=== PATIENT | female | born 1965 | race Caucasian/White ===

== ENCOUNTER 2017-08-17 15:29 | Inpatient (IN) | payer MEDICARE, MEDICAID, SELFPAY | END 2017-08-19 09:50 | disposition home or self-care (01) | DRG 641 | PROVIDERS: Admitting Provider Emergency Medicine; Emergency Provider Emergency Medicine; Family Provider Internal Medicine; Visit Provider Internal Medicine Adolescent Medicine | DX: E86.0 Dehydration (principal); N17.9 Acute kidney failure, unspecified; I50.30 Unspecified diastolic (congestive) heart failure; E87.1 Hypo-osmolality and hyponatremia; E11.9 Type 2 diabetes mellitus without complications; I10 Essential (primary) hypertension; Z79.4 Long term (current) use of insulin; T50.2X5A Adverse effect of carbonic-anhydrase inhibitors, benzothiadiazides and other diuretics, initial encounter; Z91.81 History of falling; I25.10 Atherosclerotic heart disease of native coronary artery without angina pectoris; B19.20 Unspecified viral hepatitis C without hepatic coma | CPT/HCPCS: 36415; 70450; 71010; 72070; 72110; 72125; 73502; 73630; 80048; 80053; 82550; 82553; 82962; 84484; 85025; 93005; 99284; G0378 ==

== ENCOUNTER → 2017-09-11 09:09 | Outpatient (CLI) | payer MEDICARE, SELFPAY ==
[2017-09-11 09:32] LABS: Anion Gap 15.5 mEq/L (5-15); Blood Urea Nitrogen 19 mg/dL (7-18); Carbon Dioxide 24 mmol/L (21.0-32.0); Chloride 104 mmol/L (98-107); Creatinine,Serum 1.24 mg/dL (0.55-1.02); Estimated Glomerular Filt Rate 45 ml/min (>60); GFR (African American) 55 ML/MIN (>60); Glucose 159 mg/dL (74-106); Potassium 3.5 mmoL/L (3.5-5.1); Sodium 140 mmol/L (136-145)
== END ==
PROVIDERS: PCP Internal Medicine; Visit Provider Internal Medicine
DX: I11.9 Hypertensive heart disease without heart failure (principal); I25.10 Atherosclerotic heart disease of native coronary artery without angina pectoris
CPT/HCPCS: 36415; 80048

== ENCOUNTER → 2017-10-24 09:37 | Outpatient (CLI) | payer MEDICARE, SELFPAY ==
[2017-10-24 09:56] LABS: Blood Urea Nitrogen 12 mg/dL (7-18); Carbon Dioxide 30 mmol/L (21.0-32.0); Chloride 104 mmol/L (98-107); Estimated Glomerular Filt Rate 58 ml/min (>60); GFR (African American) 70 ML/MIN (>60); Glucose 152 mg/dL (74-106); Sodium 141 mmol/L (136-145)
== END ==
PROVIDERS: Visit Provider Internal Medicine Cardiovascular Disease
DX: I25.10 Atherosclerotic heart disease of native coronary artery without angina pectoris (principal); R00.0 Tachycardia, unspecified; I51.7 Cardiomegaly; I11.9 Hypertensive heart disease without heart failure; I10 Essential (primary) hypertension; R06.83 Snoring
CPT/HCPCS: 36415; 80048

== ENCOUNTER → 2017-12-04 20:05 | Outpatient (CLI) | payer MEDICARE, SELFPAY | PROVIDERS: PCP Internal Medicine; Visit Provider Internal Medicine Cardiovascular Disease | DX: R06.83 Snoring (principal); G47.9 Sleep disorder, unspecified; G47.00 Insomnia, unspecified | CPT/HCPCS: 95810 ==

== ENCOUNTER → 2018-06-01 09:54 | Outpatient (POV) | payer MEDICARE, SELFPAY ==
[2018-06-01 10:06] VITALS: BP 139/91; PULSE 79; RESP 18; O2SAT 98
--- NOTE | 2018-06-01 10:41 | HMH.PMCON ---
Assessment and Plan (1) Neuropathy Current visit: Yes Status: Chronic Category: Medical Code(s): G62.9 - Polyneuropathy, unspecified (2) Back pain Current visit: Yes Status: Chronic Qualifiers: Back pain location: low back pain Chronicity: chronic Back pain laterality: midline Sciatica presence: unspecified whether sciatica present Qualified Code(s): M54.5 - Low back pain; G89.29 - Other chronic pain Category: Medical Code(s): M54.9 - Dorsalgia, unspecified - Assessment and plan all Dx Assessment and Plan for all problems:: I gave the patient information on neuro stimulation. Patient is in review this and see if it is something that she is interested in pursuing. Patient has tried and failed other modalities of treatment. This note was dictated using voice recognition software and may contain errors or omissions HPI - Data of Consult Consult date: 06/01/18 Requesting Physician: Sonia Caceres APRN Primary Care Provider: Moose Martin Provider: Moose Chavarria - Consult Narrative Reason for consult: Generalized pain History of present illness: Ms. Kinsey is a 53 year old female presents today for consultation in regards to her pain. Patient has been diagnosed with fibromyalgia and diabetic neuropathy. Patient has overall pain. Patient seems frustrated be primary care physician has been changing her medications. Patient was taken off her Mobic along with her gabapentin. Patient states her PCP felt she was on too much medication. Patient does have a CPAP she wears at night. She is currently on Lyrica 50 mg 1 p.o. twice daily and she states that this does not helping. Patient has hep C. Patient and I discussed treatment options. She rates her pain a 10 out of 10 she states it is all over. Patient has had injections in the back with not much relief. Patient's tried and failed chiropractic therapy, physical therapy, fentanyl, Cymbalta, Lexapro, Lortab, Lyrica. Patient states all activity increases her pain while nothing decreases her pain. CC: Sonia Caceres APRN [facility] History I have reviewed the patient's past medical history: Yes Medical History: Reports:: Asthma, Coronary Artery Disease, Diabetes Mellitus Type 2, Gastroesophageal Reflux Disease(GERD), Hyperlipidemia, Hypertension Other Medical History: Reports: Arthritis, Thyroid Disease Laterality Cases: Left: Lumpectomy Other Surgeries: Yes: Cholecystectomy, Diagnostic Lap, Hernia Repair, Hysterectomy-Total, Tubal Ligation, Other - *Social History Smoking Status: Never smoker Alcohol Intake: former Alcohol Intake Frequency:: other Occupational Status: other Housing: house - Psychiatric History Expresses thoughts of harming self/others: None Suicide Plan Description: No Plan *Family Hx:: Heart Attack 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 Gastrointestinal: no incontinence, normal bowel movements reported Genitourinary: no incontinence Musculoskeletal: Back pain and neck pain, leg pain, arm pain Psychiatric: normal mood/ affect Neurological: [denies weakness in extremities], [denies balance issues] Meds Home Medications Medication Instructions Recorded Confirmed Type allopurinol 300 mg tablet 300 mg PO QDAY 09/11/17 History aspirin 81 mg tablet,delayed 81 mg PO QDAY 09/11/17 History release buspirone 15 mg tablet 30 mg PO BID tab 09/11/17 History cholecalciferol (vitamin D3) 2,000 2,000 unit PO QDAY cap 09/11/17 History unit capsule hydroxyzine pamoate 25 mg capsule 25 mg PO BID PRN cap 09/11/17 History insulin aspar prt-insulin aspart 40 unit SUB-Q QAM ml 09/11/17 Histo
--- NOTE | 2018-06-01 10:44 | P.CONS_ITS ---
Assessment and Plan (1) Neuropathy Current visit: Yes Status: Chronic Category: Medical Code(s): G62.9 - Polyneuropathy, unspecified (2) Back pain Current visit: Yes Status: Chronic Qualifiers: Back pain location: low back pain Chronicity: chronic Back pain laterality: midline Sciatica presence: unspecified whether sciatica present Qualified Code(s): M54.5 - Low back pain; G89.29 - Other chronic pain Category: Medical Code(s): M54.9 - Dorsalgia, unspecified - Assessment and plan all Dx Assessment and Plan for all problems:: I gave the patient information on neuro stimulation. Patient is in review this and see if it is something that she is interested in pursuing. Patient has tried and failed other modalities of treatment. This note was dictated using voice recognition software and may contain errors or omissions HPI - Data of Consult Consult date: 06/01/18 Requesting Physician: Sonia Caceres APRN Primary Care Provider: Moose Martin Provider: Moose Chavarria - Consult Narrative Reason for consult: Generalized pain History of present illness: Ms. Kinsey is a 53 year old female presents today for consultation in regards to her pain. Patient has been diagnosed with fibromyalgia and diabetic neuropathy. Patient has overall pain. Patient seems frustrated be primary care physician has been changing her medications. Patient was taken off her Mobic along with her gabapentin. Patient states her PCP felt she was on too much medication. Patient does have a CPAP she wears at night. She is currently on L yrica 50 mg 1 p.o. twice daily and she states that this does not helping. Patient has hep C. Patient and I discussed treatment options. She rates her pain a 10 out of 10 she states it is all over. Patient has had injections in the back with not much relief. Patient's tried and failed chiropractic therapy, physical therapy, fentanyl, Cymbalta, Lexapro, Lortab, Lyrica. Patient states all activity increases her pain while nothing decreases her pain. CC: Sonia Caceres APRN [facility] History I have reviewed the patient's past medical history: Yes Medical History: Reports:: Asthma, Coronary Artery Disease, Diabetes Mellitus Type 2, Gastroesophageal Reflux Disease(GERD), Hyperlipidemia, Hypertension Other Medical History: Reports: Arthritis, Thyroid Disease Laterality Cases: Left: Lumpectomy Other Surgeries: Yes: Cholecystectomy, Diagnostic Lap, Hernia Repair, Hysterectomy-Total, Tubal Ligation, Other - *Social History Smoking Status: Never smoker Alcohol Intake: former Alcohol Intake Frequency:: other Occupational Status: other Housing: house - Psychiatric History Expresses thoughts of harming self/others: None Suicide Plan Description: No Plan *Family Hx:: 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 Gastrointestinal: no incontinence, normal bowel movements reported Genitourinary: no incontinence Musculoskeletal: Back pain and neck pain, leg pain, arm pain Psychiatric: normal mood/ affect Neurological: [denies weakness in extremities], [denies balance issues] Meds Home Medications Medication Instructions
== END ==
PROVIDERS: Family Provider Internal Medicine; PCP Internal Medicine; Visit Provider Clinical Nurse Specialist Family Health
DX: G62.9 Polyneuropathy, unspecified (principal); M54.5 Low back pain; G89.29 Other chronic pain
CPT/HCPCS: 99202

== ENCOUNTER → 2018-06-11 10:35 | Outpatient (CLI) | payer MEDICARE, SELFPAY ==
[2018-06-11 13:06] LABS: Anion Gap 9.9 mEq/L (5-15); Blood Urea Nitrogen 13 mg/dL (7-18); Calcium 9.1 mg/dL (8.5-10.1); Carbon Dioxide 30 mmol/L (21.0-32.0); Chloride 100 mmol/L (98-107); Creatinine,Serum 1.03 mg/dL (0.55-1.02); Estimated Glomerular Filt Rate 56 ml/min (>60); GFR (African American) 67 ML/MIN (>60); Glucose 179 mg/dL (74-106); Potassium 3.9 mmoL/L (3.5-5.1); Sodium 136 mmol/L (136-145)
== END ==
PROVIDERS: PCP Internal Medicine; Visit Provider Internal Medicine Cardiovascular Disease
DX: E11.8 Type 2 diabetes mellitus with unspecified complications (principal); E66.01 Morbid (severe) obesity due to excess calories; E78.00 Pure hypercholesterolemia, unspecified; G47.33 Obstructive sleep apnea (adult) (pediatric); I11.9 Hypertensive heart disease without heart failure; I25.118 Atherosclerotic heart disease of native coronary artery with other forms of angina pectoris; R06.09 Other forms of dyspnea; Z79.4 Long term (current) use of insulin
CPT/HCPCS: 36415; 80048

== ENCOUNTER → 2018-06-30 08:56 | Outpatient (POV) | payer MEDICARE, SELFPAY ==
[2018-06-30 09:24] VITALS: BP 110/77; PULSE 69; RESP 18; O2SAT 98; BMI 42.4
--- NOTE | 2018-06-30 12:14 | HMH.PAINSOAP ---
[facility] Pain Management SOAP Note Subjective:: Patient is a pleasant 53-year-old white female who presents today for discussion in regards to her neurostimulator. She rates her pain a 9 out of 10 today. Patient and I had a long discussion in regards to the neurostimulator at her last appointment and she is interested in this. Patient states that her PCP felt she was on too much of her medication. She wears a CPAP at night. She is currently on Lyrica 50 mg 1 p.o. twice daily. She states this does not help. She does have hep C. Patient and I discussed changing her over to gabapentin 400 mg 1 3 times daily until the trial. Patient states all activity increases her pain while nothing decreases her pain. She states most of her pain is in her neck and arms along with her low back and legs. ROS General: no recent weight change, no fever, no sleep disturbances Respiratory: no cough, no shortness of air, no recurring pulmonary infections Cardiovascular/Peripheral Vascular: No chest pain, No palpitations, no edema, no shortness of breath. Gastrointestinal: no incontinence, normal bowel movements reported Genitourinary: no incontinence Musculoskeletal: Low back pain, leg pain, neck pain, arm pain Psychiatric: normal mood/ affect Neurological: [denies weakness in extremities], [denies balance issues] Objective:: Physical Exam General: Alert and oriented x3, no acute distress, pleasant and cooperative, [on room air] Lungs: Resps E/U, Symmetrical chest expansion, Eyes: PERRL Musculoskeletal: Flexion and extension of cervical and lumbar spine somewhat guarded secondary to pain, deep tendon reflexes normal, strength in upper and lower extremities [5/5], [abnormal gait noted] Neurological: speech clear, mononitrotoluene operator equal, no gross sensory deficits Assessment:: degenerative disc disease cervical spine with cervical radiculopathy and degenerative disc disease lumbar spine with lumbar radiculopathy Plan:: We will plan a neurostimulator trial for the patient. We will try to cover her cervical pain along with her arm pain and her low back pain and leg pain. We will also call in gabapentin 400 mg 1 p.o. 3 times daily for 1 month. I will follow-up with her after her trial. Patient's not on any anticoagulation therapy. This note was dictated using voice recognition software and may contain errors or omissions
== END ==
PROVIDERS: PCP Internal Medicine; Visit Provider Clinical Nurse Specialist Family Health
DX: M50.10 Cervical disc disorder with radiculopathy, unspecified cervical region (principal); M51.16 Intervertebral disc disorders with radiculopathy, lumbar region
CPT/HCPCS: 99213

== ENCOUNTER → 2018-07-09 10:42 | Outpatient (CLI) | payer MEDICARE, SELFPAY ==
[2018-07-09 12:50] LABS: Blood Urea Nitrogen 15 mg/dL (7-18); Calcium 9.4 mg/dL (8.5-10.1); Carbon Dioxide 30 mmol/L (21.0-32.0); Chloride 100 mmol/L (98-107); Creatinine,Serum 0.94 mg/dL (0.55-1.02); Estimated Glomerular Filt Rate 62 ml/min (>60); GFR (African American) 75 ML/MIN (>60); Glucose 164 mg/dL (74-106); Sodium 139 mmol/L (136-145)
== END ==
PROVIDERS: Urology; PCP Internal Medicine; Visit Provider Internal Medicine Cardiovascular Disease
DX: E11.8 Type 2 diabetes mellitus with unspecified complications (principal); I10 Essential (primary) hypertension; I25.118 Atherosclerotic heart disease of native coronary artery with other forms of angina pectoris; R06.09 Other forms of dyspnea; R60.1 Generalized edema
CPT/HCPCS: 36415; 80048

== ENCOUNTER → 2018-07-17 13:51 | Outpatient (POV) | payer MEDICARE, SELFPAY ==
[2018-07-17 14:02] VITALS: BP 152/104; PULSE 84; RESP 18; O2SAT 96; BMI 40.7
--- NOTE | 2018-07-17 14:07 | P.CONS_ITS ---
[facility] Pain Management SOAP Note Subjective:: This patient is a pleasant 53-year-old white female who we are treating for neck pain with cervical radiculopathy symptoms as well as low back pain with lumbar radiculopathy symptoms. She did very well with her spinal cord stimulator trial. She was 70-80% better. She was much more functional. Her thoracic lead was off midline and she got good stimulation on the left side and not the right side. Given the difficulty in placing her leads in the cervical region and lower thoracic region I believe she would be a candidate for surgical paddle lead placement. Since this was a successful trial. We will send her to Dr. Ochoa for permanent surgical paddle lead placement. Objective:: Alert and oriented x3 no acute distress. Patient does have an antalgic gait. Motor strength of the upper and lower extremities are 5/5. There is no gross sensory deficit. Lead was pulled intact with no signs of infection or redness. Assessment:: Degenerative disc disease of the cervical spine with cervical radiculopathy symptoms. Degenerative disease of lumbar spine with lumbar radiculopathy symptoms. Plan:: We will refer to Dr. Ochoa for surgical paddle lead placement. Cervical lead needs to be at the C4-C5 level. Lower thoracic leave needs to be at the T7-T8 level in the midline. We will follow-up with her after her surgical permanent placement of spinal cord stimulator system.
--- NOTE | 2018-07-22 11:29 | PC.PHONENOTE ---
CALLED IN RX FOR TRAMADOL 50MG TID #63 PER PROVIDER ORDER
--- NOTE | 2018-09-22 08:52 | PC.NURSE ---
REFILL FOR GABAPENTIN 400MG TID CALLED INTO [facility] IN [place] PER PROVIDER ORDER. PHARMACY # IS [phone]
== END ==
PROVIDERS: PCP Internal Medicine; Visit Provider Anesthesiology
DX: M50.10 Cervical disc disorder with radiculopathy, unspecified cervical region (principal); M51.16 Intervertebral disc disorders with radiculopathy, lumbar region
CPT/HCPCS: 99212

== ENCOUNTER → 2019-02-02 10:04 | Outpatient (POV) | payer MEDICARE, SELFPAY ==
[2019-02-02 10:34] VITALS: BP 126/81; PULSE 74; RESP 18; O2SAT 98; BMI 39.3
--- NOTE | 2019-02-02 10:42 | HMH.PAINSOAP ---
[facility] Pain Management SOAP Note Subjective:: Patient is a pleasant 53-year-old white female who we are treating for low back pain and leg pain. She is recently had a cervical fusion. She states that it is helped somewhat however she still rating her pain a 10 out of 10. Patient had a successful stimulator trial. Patient and Dr. Leal have been discussing potential fusion of the lower lumbar spine or placement of the stimulator. ROS General: no recent weight change, no fever, no sleep disturbances Respiratory: no cough, no shortness of air, no recurring pulmonary infections Cardiovascular/Peripheral Vascular: No chest pain, No palpitations, no edema, no shortness of breath. Gastrointestinal: no incontinence, normal bowel movements reported Genitourinary: no incontinence Musculoskeletal: Back pain, leg pain Psychiatric: normal mood/ affect Neurological: [denies weakness in extremities], [denies balance issues] Objective:: Physical Exam General: Alert and oriented x3, no acute distress, pleasant and cooperative, [on room air] Lungs: Resps E/U, Symmetrical chest expansion, Eyes: PERRL Musculoskeletal: Flexion and extension of lumbar spine somewhat guarded secondary to pain, deep tendon reflexes normal, strength in upper and lower extremities [5/5], [abnormal gait noted] Neurological: speech clear, 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 Leal. Patient and I discussed potentially another stimulator trial. I do spoke with Dr. Vincent about this he states that we can move forward with this after her appointment Dr. Leal. We will increase her gabapentin to 600 mg 1 p.o. 3 times daily and I will see her back in 1 month. She is been instructed to call the office if she has any issues prior to her next appointment. Dr. Vicnent has reviewed this note and agrees with this plan of care. This note was dictated using voice recognition software and may contain errors or omissions
--- NOTE | 2019-02-02 10:45 | P.CONS_ITS ---
[facility] Pain Management SOAP Note Subjective:: Patient is a pleasant 53-year-old white female who we are treating for low back pain and leg pain. She is recently had a cervical fusion. She states that it is helped somewhat however she still rating her pain a 10 out of 10. Patient had a successful stimulator trial. Patient and Dr. Leal have been discussing potential fusion of the lower lumbar spine or placement of the stimulator. ROS General: no recent weight change, no fever, no sleep disturbances Respiratory: no cough, no shortness of air, no recurring pulmonary infections Cardiovascular/Peripheral Vascular: No chest pain, No palpitations, no edema, no shortness of breath. Gastrointestinal: no incontinence, normal bowel movements reported Genitourinary: no incontinence Musculoskeletal: Back pain, leg pain Psychiatric: normal mood/ affect Neurological: [denies weakness in extremities], [denies balance issues] Objective:: Physical Exam General: Alert and oriented x3, no acute distress, pleasant and cooperative, [on room air] Lungs: Resps E/U, Symmetrical chest expansion, Eyes: PERRL Musculoskeletal: Flexion and extension of lumbar spine somewhat guarded secondary to pain, deep tendon reflexes normal, strength in upper and lower extremities [5/5], [abnormal gait noted] Neurological: 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 Leal. Patient and I discussed potentially another stimulator trial. I do spoke with Dr. Vincent about this he states that we can move forward with this after her appointment Dr. Leal. We will increase her gabapentin to 600 mg 1 p.o. 3 times daily and I will see her back in 1 month. She is been instructed to call the office if she has any issues prior to her next appointment. Dr. Vincent has reviewed this note and agrees with this plan of care. This note was dictated using voice recognition software and may contain errors or omissions
--- NOTE | 2019-03-03 15:33 | PC.PHONENOTE ---
called in 2 refill's for Gabapentin 600mg TID with to [facility] per providers order.
--- NOTE | 2019-05-26 08:04 | PC.NURSE ---
05/25/19 LATE ENTRY: GABAPENTIN 600MG TID WITH 2 REFILLS CALLED INTO [facility] PER PROVIDER ORDER
--- NOTE | 2019-06-01 09:28 | PC.NURSE ---
2 REFILLS FOR NEXIUM AND NAPROXEN CALLED INTO [facility] IN [place] PER PROVIDER ORDER
== END ==
PROVIDERS: PCP Internal Medicine; Visit Provider Clinical Nurse Specialist Family Health
DX: M51.16 Intervertebral disc disorders with radiculopathy, lumbar region (principal)
CPT/HCPCS: 99212

== ENCOUNTER → 2019-08-23 10:28 | Outpatient (POV) | payer MEDICARE, SELFPAY ==
[2019-08-23 11:02] VITALS: BP 124/68; PULSE 75; RESP 18; O2SAT 98; BMI 40.5
--- NOTE | 2019-08-23 11:35 | P.CONS_ITS ---
[facility] Pain Management SOAP Note Subjective:: Patient is a pleasant 54-year-old white female who we are treating for low back pain and leg pain. She is recently had a cervical fusion. Patient had a new Vectra stimulator put in by Dr. Leal. We will get her the one 800-number for this company. Patient still having difficulty finding someone to reprogram her. Patient rates her pain a 6 out of 10 today. She is also on gabapentin 600 mg 1 p.o. 3 times daily along with Nexium and naproxen we will refill her today. Patient's main complaint today is left knee pain. Patient has difficulty with her knee patient and I discussed genicular blocks she is interested in pursuing this. ROS General: no recent weight change, no fever, no sleep disturbances Respiratory: no cough, no shortness of air, no recurring pulmonary infections Cardiovascular/Peripheral Vascular: No chest pain, No palpitations, no edema, no shortness of breath. Gastrointestinal: no new onset incontinence, normal bowel movements reported Genitourinary: no new onset incontinence Musculoskeletal: Left knee pain Psychiatric: normal mood/ affect Neurological: [denies new onset weakness in extremities], [denies new onset balance issues] Objective:: Physical Exam General: Alert and oriented x3, no acute distress, pleasant and cooperative, [on room air] Lungs: Resps E/U, Symmetrical chest expansion, Eyes: PERRL Musculoskeletal: Flexion and extension of cervical and lumbar spine somewhat guarded secondary to pain, deep tendon reflexes normal, strength in upper and lower extremities [5/5], decreased range of motion left knee secondary to pain [abnormal gait noted] Neurological: speech clear, 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 We will also refill her gabapentin, naproxen, Nexium. I will follow-up with her after her appointment reassess her symptoms at that time she is been instructed to call the office if she has any issues prior to her next appointment. Dr. Vincent has reviewed this note and agrees with this plan of care. This note was dictated using voice recognition software and may contain errors or omissions [facility] History I have reviewed the patient's past medical history: Yes Medical History: Reports:: Asthma, Coronary Artery Disease, Diabetes Mellitus Type 2, Gastroesophageal Reflux Disease(GERD), Hyperlipidemia, Hypertension Denies:: Cancer, Diabetes Mellitus Type 1, Internal Pacemaker, MRSA, Seizures *Have you ever received a pneumonia vaccine?: Yes *Have you received a flu vaccine this season?: Yes Other Medical History: Reports: Arthritis, Thyroid Disease. Denies: Blood Transfusion Reaction Laterality Cases: Left: Arthroscopy Shoulder, Lumpectomy Other Surgeries: Yes: No Previous Surgery, Cholecystectomy, Diagnostic Lap, Hernia Repair, Hysterectomy-Total, Tubal Ligation, Other. 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
== END ==
PROVIDERS: PCP Internal Medicine; Visit Provider Clinical Nurse Specialist Family Health
DX: M25.562 Pain in left knee (principal); M96.1 Postlaminectomy syndrome, not elsewhere classified; M51.16 Intervertebral disc disorders with radiculopathy, lumbar region
CPT/HCPCS: 99212

== ENCOUNTER → 2019-10-25 10:17 | Outpatient (POV) | payer MEDICARE, SELFPAY ==
[2019-10-25 10:38] VITALS: BP 118/68; PULSE 84; RESP 18; O2SAT 98; BMI 39.4
--- NOTE | 2019-10-25 10:52 | HMH.PAINSOAP ---
[facility] Pain Management SOAP Note Subjective:: She is a pleasant 54-year-old white female who returns for chronic left knee pain. She status post a left knee genicular block. She has no pain in her knee anymore been doing extremely well her biggest complaint is her left SI joint. She has extreme point tenderness over this area radiating into her hip and down her leg but not past her knee. Patient and I discussed an SI joint injection we will move forward with this. Patient is continuing anti-inflammatories and stretching. ROS General: no recent weight change, no fever, no sleep disturbances Respiratory: no cough, no shortness of air, no recurring pulmonary infections Cardiovascular/Peripheral Vascular: No chest pain, No palpitations, no edema, no shortness of breath. Gastrointestinal: no new onset incontinence, normal bowel movements reported Genitourinary: no new onset incontinence Musculoskeletal: Left SI joint pain Psychiatric: normal mood/ affect, Neurological: [denies new onset weakness in extremities], [denies new onset balance issues] Objective:: Physical Exam General: Alert and oriented x3, no acute distress, pleasant and cooperative, [on room air] Lungs: Resps E/U, Symmetrical chest expansion, Eyes: PERRL Musculoskeletal: Flexion and extension of lumbar spine somewhat guarded secondary to pain, deep tendon reflexes normal, strength in upper and lower extremities [5/5], [abnormal gait noted] patient has a positive Titus test Trung's test and SI joint compression test on the left side Neurological: speech clear, support architect equal, no gross sensory deficits Assessment:: Sacroiliitis Plan:: We will schedule the patient for a left SI joint injection I do believe this would benefit her given the efficacy of other injection she has had. Patient's been instructed to call the office if she has any issues prior to her next appointment. Dr. Vincent has reviewed this note and agrees with this plan of care. This note was dictated using voice recognition software and may contain errors or omissions [facility] History I have reviewed the patient's past medical history: Yes Medical History: Reports:: Asthma, Coronary Artery Disease, Diabetes Mellitus Type 2, Gastroesophageal Reflux Disease(GERD), Hyperlipidemia, Hypertension Denies:: Cancer, Diabetes Mellitus Type 1, Internal Pacemaker, MRSA, Seizures *Have you ever received a pneumonia vaccine?: Yes *Have you received a flu vaccine this season?: Yes Other Medical History: Reports: Arthritis, Thyroid Disease. Denies: Blood Transfusion Reaction Laterality Cases: Left: Arthroscopy Shoulder, Lumpectomy Other Surgeries: Yes: No Previous Surgery, Cholecystectomy, Diagnostic Lap, Hernia Repair, Hysterectomy-Total, Tubal Ligation, Other. 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
== END ==
PROVIDERS: PCP Internal Medicine; Visit Provider Clinical Nurse Specialist Family Health
DX: M46.1 Sacroiliitis, not elsewhere classified (principal)
CPT/HCPCS: 99212

== ENCOUNTER → 2020-01-17 10:54 | Outpatient (POV) | payer MEDICARE, SELFPAY ==
--- NOTE | 2020-01-17 10:59 | HMH.VVPMSO ---
[facility] Virtual Visit SOAP Consent for virtual visit:: With the recent concerns about the COVID-19, we are trying to minimize exposure to you by shifting to telehealth appointments whenever possible. It restricts me from seeing you in person, but the trade off is protecting you during this pandemic. Can you see and hear me okay, and do you consent to this option? If not, I would be happy to see if we can reschedule your appointment in the future, when feasible. Has patient consented to this virtual visit?: Yes Subjective:: Patient is a pleasant 54-year-old white female who presents today for follow-up. Patient had a left knee genicular block and got 90% relief for 2 months. She would like to move forward with an ablation of this area. She has had pain in her knee for several years. Patient is tried and failed injective therapy along with physical therapy along with anti-inflammatories. Patient rates her pain today a 7 out of 10. She is also on gabapentin 600 mg 1 p.o. 3 times daily. ROS General: no recent weight change, no fever, no sleep disturbances Respiratory: no cough, no shortness of air, no recurring pulmonary infections Cardiovascular/Peripheral Vascular: No chest pain, No palpitations, no edema, no shortness of breath. Gastrointestinal: no new onset incontinence, normal bowel movements reported Genitourinary: no new onset incontinence Musculoskeletal: Left knee pain Psychiatric: normal mood/ affect Neurological: [denies new onset weakness in extremities], [denies new onset balance issues] Objective:: Physical exam: Constitutional: Healthy appearing, well-developed, alert, in no acute distress Psychiatric: Judgment and insight intact, Alert and oriented x4 Mood and affect: Mood normal, affect appropriate Head and face: Inspection: Normocephalic atraumatic, extraocular movement intact Respiratory: Breathing nonlabored, nondyspneic Cardiovascular: No cyanosis, clubbing, or edema observed Skin: Head and neck: Skin with no lesions or rash observed Gait: Able to walk without assistive device: Able to heel and toe walk Neurologic: Sensation grossly intact per patient Musculoskeletal: Decreased range of motion left knee Assessment:: Left knee osteoarthritis and left knee pain Plan:: We will schedule the patient for a left genicular RFA. I will follow-up with her after this reassess her symptoms at that time she has been instructed to call the office if she has any issues prior to her next appointment. Dr. Vincent has reviewed this note and agrees with this plan of care. This note was dictated using voice recognition software and may contain errors or omissions Time In:: 10:55 Time Out:: 11:05 [facility] History I have reviewed the patient's past medical history: Yes Medical History: Reports:: Asthma, Coronary Artery Disease, Diabetes Mellitus Type 2, Gastroesophageal Reflux Disease(GERD), Hyperlipidemia, Hypertension Denies:: Cancer, Diabetes Mellitus Type 1, Internal Pacemaker, MRSA, Seizures *Have you ever received a pneumonia vaccine?: No *Have you received a flu vaccine this season?: No Other Medical History: Reports: Arthritis, Thyroid Disease. Denies: Blood Transfusion Reaction Laterality Cases: Left: Arthroscopy Shoulder, Lumpectomy Other Surgeries: Yes: No Previous Surgery, Cholecystectomy, Diagnostic Lap, Hernia Repair, Hysterectomy-Total, Tubal Ligation, Other. No: Pacemaker Amputation: No Fractures: No - *Social History Smoking Status: Never smoker Alcohol Intake: never Alcohol Intake Frequency:: other Substance Use Type: denies use *Occupational Status:: disabled Housing: house *Travel in the last 8 weeks: None Family Hx:: Heart Attack [employer] history: Tubal Ligation, Spontaneous
== END ==
PROVIDERS: Visit Provider Clinical Nurse Specialist Family Health
DX: M17.12 Unilateral primary osteoarthritis, left knee (principal)
CPT/HCPCS: 99212

== ENCOUNTER → 2020-02-08 08:50 | Outpatient (POV) | payer MEDICARE, SELFPAY ==
[2020-02-08 09:07] VITALS: BP 107/79; PULSE 79; RESP 18; TEMP 36.8; O2SAT 99; BMI 40.7
--- NOTE | 2020-02-08 09:32 | P.CONS_ITS ---
[facility] Pain Management SOAP Note Subjective:: Patient is a pleasant 54-year-old white female who presents today for follow-up. Patient states that on Friday she had a migraine and was throwing up. Since then she has had extreme pain throughout her body. She denies any kind of flulike symptoms. She states her right shoulder hurts she is having muscle spasms her knees hurt her joints hurt. She rates her pain a 10 out of 10 today. Patient wanted to discuss oral medication. I do believe around the steroids might benefit her. She has had these before with good results. She is recently gotten lab work done for her primary care physician. ROS General: no recent weight change, no fever, no sleep disturbances Respiratory: no cough, no shortness of air, no recurring pulmonary infections Cardiovascular/Peripheral Vascular: No chest pain, No palpitations, no edema, no shortness of breath. Gastrointestinal: no new onset incontinence, normal bowel movements reported Genitourinary: no new onset incontinence Musculoskeletal: Back pain, leg pain Psychiatric: normal mood/ affect, Neurological: [denies new onset weakness in extremities], [denies new onset balance issues] Objective:: Physical Exam General: Alert and oriented x3, no acute distress, pleasant and cooperative, [on room air] Lungs: Resps E/U, Symmetrical chest expansion, Eyes: PERRL Musculoskeletal: Flexion and extension of lumbar spine somewhat guarded secondary to pain, deep tendon reflexes normal, strength in upper and lower extremities [5/5], [abnormal gait noted] Neurological: speech clear, meter/relay technician equal, no gross sensory deficits Assessment:: Degenerative disc disease lumbar spine lumbar radiculopathy, left knee pain and osteoarthritis Plan:: We will give her prednisone 20 mg 1 p.o. twice daily for 5 days. She does have an RFA scheduled on Friday for her knee. We will follow-up with her after this reassess her symptoms at that time she has been instructed to call the office if she has any issues prior to her next appointment. Dr. Vincent has reviewed this no te and agrees with this plan of care. This note was dictated using voice recognition software and may contain errors or omissions [facility] History I have reviewed the patient's past medical history: Yes Medical History: Reports:: Asthma, Coronary Artery Disease, Diabetes Mellitus Type 2, Gastroesophageal Reflux Disease(GERD), Hyperlipidemia, Hypertension Denies:: Cancer, Diabetes Mellitus Type 1, Internal Pacemaker, MRSA, Seizures *Have you ever received a pneumonia vaccine?: Yes *Have you received a flu vaccine this season?: Yes Other Medical History: Reports: Arthritis, Thyroid Disease. Denies: Blood Transfusion Reaction Laterality Cases: Left: Arthroscopy Shoulder, Lumpectomy Other Surgeries: Yes: No Previous Surgery, Cholecystectomy, Diagnostic Lap, Hernia Repair, Hysterectomy-Total, Tubal Ligation, Other. No: Pacemaker Amputation: No Fractures: No - *Social History Smoking Status: Never smoker Alcohol Intake: never Alcohol Intake Frequency:: other Substance Use Type: denies use *Occupational Status:: other Housing: house *Travel in the last 8 weeks: None Family Hx:: Heart Attack [employer]M [employer]ER history: Tubal Ligation, Spontaneous
== END ==
PROVIDERS: PCP Internal Medicine; Visit Provider Clinical Nurse Specialist Family Health
DX: M51.16 Intervertebral disc disorders with radiculopathy, lumbar region (principal); M17.32 Unilateral post-traumatic osteoarthritis, left knee
CPT/HCPCS: 99212

== ENCOUNTER 2020-02-11 09:05 | Day surgery (SDC) | payer MEDICARE, SELFPAY ==
[2020-02-11 09:34] VITALS: BP 160/75; PULSE 64; RESP 18; TEMP 36.6; O2SAT 96; BMI 40.7
[2020-02-11 09:57] VITALS: BP 142/78; PULSE 82; RESP 18; O2SAT 98
[2020-02-11 09:58] VITALS: BP 135/85; PULSE 88; RESP 18; TEMP 36.8; O2SAT 99
--- NOTE | 2020-02-11 10:14 | P.PCN_ITS ---
- Procedure Date: 02/11/20 Time: 10:14 Anesthesiologist:: Virgilio Vincent MD Complications:: None Pre-procedure Diagnosis:: Left knee degenerative osteoarthritis Post-procedure Diagnosis:: Same Indications for Procedure:: Patient is a pleasant 54-year-old white female who we have been treating for low back pain with lumbar radicular symptoms as well as left knee pain with degenerative osteoarthritis. She did very well from previous genicular nerve blocks with 80 to 90% relief in her pain symptoms. These however were not but long-lasting. She presents for left genicular superior medial, superior lateral and inferior medial nerve RFA today. I have also talked her about her Nuve[employer] cord stimulator. She does have a paddle lead in place. This was placed by Dr. roberson. She is having problems with equipment it is not recharging. Because the company has final chapter 11 has provided no support we will have to change his stimulator system out to a [employer] system. We will need to put percutaneous leads in and a new generator. I will have the equal opportunity representative contact her. We will also get thoracic AP and lateral x-rays to ascertain paddle lead. Procedure Details:: Left knee genicular RFA Informed consent was obtained and the risk and benefits of the procedure was explained to the patient. The patient was taken to the procedure room. The left knee was prepped using ChloraPrep. I placed 22-gauge needles into the area of the left superior medial genicular nerve, left superior lateral genicular nerve and left inferior medial genicular nerve. Needle placement was confirmed in AP and lateral views we underwent sensory stimulation. There is good sensory stimulation at 1 V. We then underwent motor stimulation. There is no motor st imulation at 3 V. We then injected bupivacaine 0.25% 3 mL's and Depo-Medrol 25 mg into each area of the left superior medial genicular nerve, left superior lateral genicular nerve and left inferior medial genicular nerve. After anesthetizing all 3 nerves we burned each nerve for 4 minutes at 80 ?C, left superior medial genicular nerve, left superior lateral genicular nerve and left inferior medial genicular nerve. Patient tolerated the procedure well with no complications. Plan and Disposition:: We will follow-up with her in 2 weeks. Will reevaluate symptoms at that time. We will get thoracic spine x-rays to ascertain her stimulator paddle lead placement. We will have her talk to the [employer] equal opportunity representative about replacement of her spinal cord stimulator system.
--- NOTE | 2020-02-11 10:16 | XR_ITS ---
PROCEDURE: XR THORACIC SPINE 2V CLINICAL INDICATION: verfiy stimulator lead placement COMPARISON: TSP2 THORACIC SPINE AP LAT-2VIEW from 08/17/2017 FINDINGS: The epidural stimulator is present. The leads are at the T8 level entering the thecal sac at the T6-T7 region. There is multilevel thoracic spondylosis with prominent ventral osteophytes with degenerative disc disease. Mild wedging noted involving T6 and T7 which appears chronic. No acute fracture or dislocation. No lytic or blastic change. IMPRESSION: Epidural leads are at the T8 level with thoracic spondylosis Dictated by: Romario Jarvis MD 02/11/2020 12:31 Electronically signed by Romario Jarvis MD in [place] 02/11/2020 12:31
--- NOTE | 2020-02-11 10:25 | XR_ITS ---
PROCEDURE: XR CERVICAL SPINE 2V CLINICAL INDICATION: check stimulator leads COMPARISON: CSWO CT CERVICAL SPINE from 08/17/2017 XR THORACIC SPINE 2V from 02/11/2020 FINDINGS: There has been prior anterior cervical disc fusion at C4-C5 C6 and C7.. There is mild anterolisthesis of C4 C5 on C6 of 4 mm. Disc spacers are present at C4-5 C5-C6. On the lateral view there is questionable irregularity of the inferior screws at C7. Cannot exclude the possibility of a partial fracture. CT may provide further evaluation. Facet arthritic changes are present at C3-C4 and C4-C5 and C6-C7. IMPRESSION: Prior anterior cervical disc fusion with questionable fracture of 1 of the inferior screws at C7 as seen on the lateral view. CT may provide further evaluation. Dictated by: Romario Jarvis MD 02/11/2020 12:25 Electronically signed by Romario Jarvis MD in [place] 02/11/2020 12:25
[2020-02-11 10:26] VITALS: BP 160/93; PULSE 65; RESP 18; O2SAT 96
--- NOTE | 2020-02-11 15:23 | PC.NURSE ---
GABAPENTIN 800MG TID WITH 2 REFILLS CALLED INTO [facility] PER PROVIDER ORDER
== END 2020-02-11 10:27 | disposition home or self-care (01) ==
LOC: SC.PAINP 09:07
PROVIDERS: PCP Internal Medicine; Visit Provider Anesthesiology
DX: M17.12 Unilateral primary osteoarthritis, left knee (principal); M51.16 Intervertebral disc disorders with radiculopathy, lumbar region; I10 Essential (primary) hypertension; J45.909 Unspecified asthma, uncomplicated; I25.10 Atherosclerotic heart disease of native coronary artery without angina pectoris; E11.9 Type 2 diabetes mellitus without complications; K21.9 Gastro-esophageal reflux disease without esophagitis; E78.5 Hyperlipidemia, unspecified; Z88.8 Allergy status to other drugs, medicaments and biological substances; Z79.899 Other long term (current) drug therapy; Z79.82 Long term (current) use of aspirin
CPT/HCPCS: 64624; 72040; 72070; J1040

== ENCOUNTER → 2020-02-24 11:56 | Outpatient (POV) | payer MEDICARE, SELFPAY ==
[2020-02-24 12:22] VITALS: BP 135/92; PULSE 73; RESP 18; O2SAT 99; BMI 41.1
--- NOTE | 2020-02-24 12:31 | HMH.PAINSOAP ---
[facility] Pain Management SOAP Note Subjective:: Patient is a pleasant [age]-year-old white female who presents today for complaints of right shoulder pain. She says she is having difficulty raising her arm above her head. She says that she is unable to comb her hair or use her right arm or hand due to the severity of the pain in her right arm. She says it is radiating into her right neck area as well. She has undergone shoulder injections in the past and she does get up to 90% relief for greater than a month. Today she rates her pain an 8 out of 10. Patient is asking for an injection today, however, she says if she cannot get an injection today she would like something to help with the pain until she can have the injection. Review of Systems General: No recent weight changes, no fever, no sleep disturbances Respiratory: No cough, no shortness of air, no recurring pulmonary infections Cardiovascular/peripheral vascular: No chest pain, no palpitations, no edema, no shortness of breath Gastrointestinal: No new onset incontinence, normal bowel movements reported Genitourinary: No new onset incontinence Musculoskeletal: Right shoulder pain Psychiatric: Normal mood/affect Neurological: [Denies weakness in extremities], [denies balance issues] Objective:: Physical exam General: Alert and oriented x3, no acute distress, pleasant and cooperative, [on room air] Lungs: Respirations even and unlabored, symmetrical chest expansion Eyes: PERRL Musculoskeletal: Flexion and extension of cervical spine somewhat guarded secondary to pain, deep tendon reflexes normal, strength in upper and lower extremities [5/5], normal gait noted Neurological: Speech clear, driller hand equal, no gross sensory deficit Assessment:: Right shoulder pain Plan:: We will plan for a right intra-articular shoulder injection for the patient. We will also order Zanaflex 4 mg 1 tablet p.o. twice daily for her until she is able to get her injection. We will see her back in the clinic after her injection to reassess her symptoms. The patient and I specifically discussed risk factors for COVID19. These risks include, but are not limited to age greater than 60, heart or lung disease, diabetes, immunosuppression, and travel. We also discussed NSAIDs may worsen COVID19 infection or symptoms. Patient should not use NSAIDs to treat COVID19 signs or symptoms. Patient was also informed that any type of corticosteroid of any form (oral or injection) will decrease the patient's immune system response and may increase the likelihood of COVID19 infection and symptoms. Given the risks and benefits of the injection, the patient would like to proceed with injection. Patient has been instructed to contact clinic if she has any concerns before next appointment. Dr. Vincent has reviewed this note and agrees with this plan of care. This note was dictated using voice recognition software and make contain errors or omissions. [facility] History I have reviewed the patient's past medical history: Yes Medical History: Reports:: Asthma, Coronary Artery Disease, Diabetes Mellitus Type 1, Diabetes Mellitus Type 2, Gastroesophageal Reflux Disease(GERD), Hyperlipidemia, Hypertension Denies:: Cancer, Internal Pacemaker, MRSA, Seizures *Have you ever received a pneumonia vaccine?: Yes *Have you received a flu vaccine this season?: Yes Other Medical History: Reports: Arthritis, Thyroid Disease. Denies: Blood Transfusion Reaction Laterality Cases: Left: Arthroscopy Shoulder, Lumpectomy Other Surgeries: Yes: No Previous Surgery, Cholecystectomy, Diagnostic Lap, Hernia Repair, Hysterectomy-Total, Tubal Ligation, Other. 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
== END ==
PROVIDERS: PCP Internal Medicine; Visit Provider Clinical Nurse Specialist Family Health
DX: M25.511 Pain in right shoulder (principal)
CPT/HCPCS: 99212

== ENCOUNTER → 2020-03-06 10:11 | Outpatient (POV) | payer MEDICARE, SELFPAY ==
[2020-03-06 10:30] VITALS: BP 86/42; PULSE 78; RESP 18; O2SAT 98; BMI 41.0
--- NOTE | 2020-03-06 11:35 | HMH.PAINSOAP ---
[facility] Pain Management SOAP Note Subjective:: Patient is a pleasant 54-year-old white female who presents today for follow-up. Patient is having extreme right shoulder pain. She was scheduled for right shoulder injection this upcoming Friday however her pain has significantly worsened she rates her pain a 10 out of 10. Most of her pain is down her entire right arm. She has difficulty with lifting it. Patient does have strength in her arm however she has numbness and tingling throughout her hand. Patient did have an x-ray done of her cervical spine where she has had cervical surgery in the past. There is a potential screw fracture. We will send her for MRI to help discern additional pathology. Patient and I discussed a cervical epidural steroid injection versus an shoulder injection she would like to move forward with this. Patient is currently on naproxen however she states is been beneficial to her. We will switch her to Mobic. She is aware is that she had not taken other NSAIDs with this medication. Patient also is on Zanaflex 4 mg 1 p.o. 3 times daily. She states that this is beneficial. ROS General: no recent weight change, no fever, no sleep disturbances Respiratory: no cough, no shortness of air, no recurring pulmonary infections Cardiovascular/Peripheral Vascular: No chest pain, No palpitations, no edema, no shortness of breath. Gastrointestinal: no new onset incontinence, normal bowel movements reported Genitourinary: no new onset incontinence Musculoskeletal: Neck pain, right arm pain Psychiatric: normal mood/ affect, Neurological: Weakness right upper extremity, [denies new onset balance issues] Objective:: Physical Exam General: Alert and oriented x3, no acute distress, pleasant and cooperative, [on room air] Lungs: Resps E/U, Symmetrical chest expansion, Eyes: PERRL Musculoskeletal: Flexion and extension of cervical spine somewhat guarded secondary to pain, deep tendon reflexes normal, strength in upper and lower extremities [5/5], [abnormal gait noted] Neurological: speech clear, twist maker equal, no gross sensory deficits Assessment:: Postlaminectomy syndrome cervical spine, cervical spondylosis, cervical radiculopathy Plan:: We will schedule C5-C6 cervical epidural steroid injection for the patient. I do believe that this would be beneficial given her symptomology. We will start her on Mobic 15 mg daily she is aware that she does not need to be on any other anti-inflammatories while taking this. Patient also is going to continue her Zanaflex 4 mg 1 p.o. 3 times daily. I will follow-up with her after her injection reassess her symptoms at that time she has been instructed to call the office if she has any issues prior to her next appointment. She is not on any anticoagulation therapy. Dr. Vincent has reviewed this note and agrees with this plan of care. This note was dictated using voice recognition software and may contain errors or omissions [facility] History I have reviewed the patient's past medical history: Yes Medical History: Reports:: Asthma, Coronary Artery Disease, Diabetes Mellitus Type 1, Diabetes Mellitus Type 2, Gastroesophageal Reflux Disease(GERD), Hyperlipidemia, Hypertension Denies:: Cancer, Internal Pacemaker, MRSA, Seizures *Have you ever received a pneumonia vaccine?: Yes *Have you received a flu vaccine this season?: Yes Other Medical History: Reports: Arthritis, Thyroid Disease. Denies: Blood Transfusion Reaction Laterality Cases: Left: Arthroscopy Shoulder, Lumpectomy Other Surgeries: Yes: No Previous Surgery, Cholecystectomy, Diagnostic Lap, Hernia Repair, Hysterectomy-Total, Tubal Ligation, Other (neck sx, pain pump, ). No: Pacemaker Amputation: No Fractures: No - *Social History Smoking Status: Never smoker Alcohol Intake: never Alcohol Intake Frequency:: other Substance Use Type: denies use *Occupational Status:: other Housing: house *Travel in the last 8 weeks: None Fa
== END ==
PROVIDERS: PCP Internal Medicine; Visit Provider Clinical Nurse Specialist Family Health
DX: M96.1 Postlaminectomy syndrome, not elsewhere classified (principal); M47.892 Other spondylosis, cervical region
CPT/HCPCS: 99212

== ENCOUNTER 2020-03-10 11:51 | Day surgery (SDC) | payer MEDICARE, SELFPAY ==
[2020-03-10 12:04] VITALS: BP 152/78; PULSE 67; RESP 18; TEMP 36.2; O2SAT 97; BMI 41.0
[2020-03-10 12:25] VITALS: BP 132/85; PULSE 78; RESP 18
--- NOTE | 2020-03-10 12:25 | HMH.PMPROC ---
- Procedure Date: 03/10/20 Time: 12:25 Anesthesiologist:: Virgilio Vincent MD Complications:: None Pre-procedure Diagnosis:: Degenerative disc disease of cervical spine with cervical radiculopathy symptoms Post-procedure Diagnosis:: Same Indications for Procedure:: This patient is a pleasant 54-year-old white female who we are treating for neck pain with cervical radiculopathy symptoms. She has increasing neck pain radiating to her right shoulder and right arm. We will do a cervical epidural steroid injection today to help her with her pain symptoms. Procedure Details:: Cervical epidural steroid injection under fluoroscopy Informed consent was obtained and the risks and benefits of the procedure was explained to the patient. The patient was taken to the procedure room placed prone on the procedure table. The neck was prepped using ChloraPrep. The skin and subcutaneous tissues were anesthetized using lidocaine. I placed a 18-gauge epidural needle into the C5-C6 interspace and advanced using [id number] to air and fluoroscopic guidance. After confirmation of needle placement in the epidural space with dye, I injected 3 mL's lidocaine 1.5% and Depo-Medrol 80 mg. The patient tolerated the procedure well with no complications. Plan and Disposition:: Follow-up with her in 2 weeks. Will reevaluate symptoms at that time. She is scheduled for replacement of her spinal cord stimulator with [employer] system. At that time we may discuss putting four leads into cover her low back and legs as well as her neck.
[2020-03-10 12:28] VITALS: BP 135/88; PULSE 88; RESP 18; O2SAT 99
[2020-03-10 12:40] VITALS: BP 164/92; PULSE 67; RESP 20; O2SAT 97
== END 2020-03-10 12:40 | disposition home or self-care (01) ==
LOC: SC.PAINP 11:55
PROVIDERS: PCP Internal Medicine; Visit Provider Clinical Nurse Specialist Family Health
DX: M50.10 Cervical disc disorder with radiculopathy, unspecified cervical region (principal); I10 Essential (primary) hypertension; J45.909 Unspecified asthma, uncomplicated; F41.9 Anxiety disorder, unspecified; F32.9 Major depressive disorder, single episode, unspecified; B19.20 Unspecified viral hepatitis C without hepatic coma; G43.909 Migraine, unspecified, not intractable, without status migrainosus; Z88.5 Allergy status to narcotic agent; Z88.8 Allergy status to other drugs, medicaments and biological substances; Z79.82 Long term (current) use of aspirin; Z79.890 Hormone replacement therapy; Z79.899 Other long term (current) drug therapy
CPT/HCPCS: 62321; J1040; Q9966

== ENCOUNTER → 2020-03-13 07:02 | Outpatient (CLI) | payer MEDICARE, SELFPAY ==
--- NOTE | 2020-03-13 | CA_ITS ---
APPROVED REPORT Technologist: Mari Bernstein, Ht: 5 ft 7 in Wt: 262 lbs BSA: 2.27 m2 HR: 70 bpm BP: 139/92 mmHg Indications: Shortness of Air Medical History Medications: Furosemide (LASIX),,,,, Aspirin,,,,, Metoprolol,,,,, Pravastatin,,,,, Metformin,,,,, Gabapentin,,,,, Buspirone,,,,, TopIRAMATE,,,,, INSULIN,,,,, Estradiol,,,,, MeLOXICAM,,,,, Tizanidine,,,,, Stress Test Details Test: LEXISCAN HR Resting HR: 70 bpm Max Heart Rate (APMHR): 164 bpm Max HR Achieved: 92 bpm Target HR (85% APMHR): 139 bpm % of APMHR: 56 Recovery HR: 50 bpm BP Resting BP: 139.0/92.0 mmHg Max BP: 147.0/88.0 mmHg Recovery BP: 129.0/85.0 mmHg ECG Clinical Exercise duration: 04:00 min Highest Stage Achieved: Stress ECG Conclusion Resting ECG: Sinus rhythm Lexiscan portion completed. Patient complained of shortness of breath during infusion. Symptoms: Shortness of breath during infusion, resolved in recovery. No chest pain.l Arrhythmias/Ectopy: No ectopy ST-T Changes: Less than 1.[address] depression. Conclusion: Images to follow. Electronically signed by : Michael Hunter, 03/13/2020 19:28:59
--- NOTE | 2020-03-13 07:02 | NM_ITS ---
APPROVED REPORT Exam: Nuclear Stress Test Indication: Chest pain, SOB, HTN, DM, High cholesterol, Family history Patient Location: Outpatient Stress Tech: Mari Bernstein NM Tech:Erin West, ARRT, RT (R)(N) Ht: 5 ft 7 in Wt: 262 lbs Bra Size: 40C HR: 70 bpm BP: 139/92 mmHg BSA: 2.27 m2 BMI: 41.0 History: Chest pain, SOB, HTN, DM, High cholesterol, Family history Procedure: Patient received a 0.4 mg of intravenous Lexiscan, resting heart rate 70 bpm, resting blood pressure 139/92 mmHg, with Lexiscan maximum heart rate achived was 47 bpm which is Less than 85 % of the maximum predicted heart rate and blood pressure was 147/88 mmHg. With Lexiscan, patient denied any complaint of chest pain. Electrocardiogram Resting electrocardiogram showed sinus rhythm, with Lexiscan there is less than 1.[address] segment depression noted from the baseline EKG. The EKG portion of the Lexiscan Myoview is nondiagnostic. Cardiac Stress and Resting SPECT Images: Cardiac Stress and Resting SPECT images were obtained using technetium 99m Myoview 32.4 mCi stress and 10.35 mCi at rest. Gated SPECT for the analysis of segmental wall motion and calculation of the ejection fraction also done. The resting SPECT images show decrease tracer activity in the anterior apical wall which partially improves on the resting images suggestive of mixed ischemia and scar, computer derived ejection fraction is 50% with moderate anterior apical wall hypokinesis, right ventricle is normal size and contractility. Conclusion: 1. The EKG portion of the Lexiscan Myoview is nondiagnostic. 2. Scintigraphic evidence of mixed ischemia and scar involving the anterior apical wall, computer derived ejection fraction is 50% with segmental wall motion abnormality described above, right ventricle is normal size and contractility. 3. Abnormal Lexiscan Myoview study. Electronically signed by : Michael Hunter, 03/13/2020 19:31:22
--- NOTE | 2020-03-13 07:14 | CA_ITS ---
APPROVED REPORT EXAM: Comprehensive 2D, Doppler, and color-flow Echocardiogram Owner Spa Director: Dayanara Ricardo CRT Ht: 5 ft 7 in Wt: 262lbs BSA: 2.27 BP: 67/33 mmHg Indications: Shortness of Breath, Diabetes, Obesity, Peripheral Edema, CAD, Hyperlipidemia, Hypertension/HDD 2D Dimensions LVOT 1.87 cm (M/F) 1.5-2.5 M-Mode Dimensions RVDd 2.57 cm (0.9-2.6) LVDd 6.06 cm (3.5-5.7) LVDs 4.10 cm (3.5-5.7) IVSd 1.33 cm (0.6-1.1) PWd 1.00 cm (0.6-1.1) EF (Teich) 59.70% FS 32.30% EDV (Teich) 184.10 mL ESV (Teich) 74.20 mL LV Diastology E/A Ratio 0.80 Mitral Valve MV A Velocity 70.00 (40-130 cm/s) Left Ventricle Left atrium is mildly enlarged, left ventricle is normal size, mild concentric left ventricular hypertrophy, visually estimated ejection fraction 55% with no regional wall motion abnormality, grade 1 diastolic dysfunction seen without tissue Doppler evidence of raise left atrial pressure. Right Ventricle Right atrium and right ventricle are normal size and contractility. Aortic Valve Aortic valve is minimally thickened and fibrosed, there is no aortic stenosis, there is mild aortic insufficiency. Mitral Valve Mitral valve is grossly normal, there is mild mitral regurgitation. Tricuspid Valve Tricuspid valve is grossly normal, there is mild tricuspid regurgitation, tricuspid regurgitation jet velocity is inadequate for calculation of the right ventricular systolic pressure. Pulmonic Valve Pulmonic valve is poorly visualized. Great Vessels Aortic root is normal size. Pericardium No significant pericardial effusion noted. Conclusion 1. Mildly enlarged left atrium, normal left ventricular size, mild concentric left ventricular hypertrophy, visually estimated ejection fraction 55% with no regional wall motion abnormality, grade 1 diastolic dysfunction seen without tissue Doppler evidence of raise left atrial pressure. 2. Mild mitral and tricuspid regurgitation. 3. No significant pericardial effusion noted. Electronically signed by : Michael Hunter, 03/13/2020 17:24:03
--- NOTE | 2020-03-13 07:34 | HMH.ITSHM ---
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 []VENLAFAXINE TOPIRAMATE TIZANIDINE PRAVASTATIN POTASSIUM METFORMIN MELOXICAM HYDROXYZINE FUROSEMIDE ESTRADIOL VITAMIN D3 BUSPIRONE ASA ALLOPURINOL METOPROLOL GABAPENTIN
== END ==
PROVIDERS: PCP Internal Medicine; Visit Provider Urology
DX: E11.8 Type 2 diabetes mellitus with unspecified complications (principal); E66.01 Morbid (severe) obesity due to excess calories; E78.00 Pure hypercholesterolemia, unspecified; I10 Essential (primary) hypertension; I11.9 Hypertensive heart disease without heart failure; I25.118 Atherosclerotic heart disease of native coronary artery with other forms of angina pectoris; I95.9 Hypotension, unspecified; R06.00 Dyspnea, unspecified; R42 Dizziness and giddiness; R60.9 Edema, unspecified
CPT/HCPCS: 78452; 93017; 93306; A9502; J2785

== ENCOUNTER → 2020-03-30 08:49 | Outpatient (CLI) | payer MEDICARE, SELFPAY ==
--- NOTE | 2020-03-30 08:50 | CA_ITS ---
APPROVED REPORT Heel Cover Softener: Halina Friend RVT Study Quality: AdequateGood Indications: Uncontrolled HTN Risk Factors Hypertension Hyperlipidemia Obesity Renal Artery Doppler Origin (R) 111.0/ cm/sec Proximal (R) 130.5/ cm/sec Mid (R) 155.8/ cm/sec Distal (R) 138.5/ cm/sec Renal Aorta Ratio (R) 1.20 Segmental A. (R) 74.3/20.1 cm/sec RI: 0.72 Segmental A. Sup (R) 74.3/20.1 cm/sec Segmental A. Mid (R) 69.9/17.1 cm/sec Segmental A. Inf (R) 56.5/19.3 cm/sec Origin (L) 148.2/ cm/sec Proximal (L) 124.7/ cm/sec Mid (L) 124.9/ cm/sec Distal (L) 86.3/ cm/sec Renal Aorta Ratio (L) 1.15 Segmental A. (L) 43.9/22.7 cm/sec RI: 0.48 Segmental A. Sup (L) 27.0/5.8 cm/sec Segmental A. Mid (L) 43.9/22.7 cm/sec Segmental A. Inf (L) 40.2/10.2 cm/sec Renal Measurements Kidney Size (R) 10.7x6.2 cm Cortical Thickness (R) 1.4 cm Kidney Size (L) 11.4x6.6 cm Cortical Thickness (L) 1.3 cm Findings Study suggests no evidence of stenosis in the bilateral renal arteries. 1.4 cm cyst seen left kidney. Conclusion Study suggests no evidence of stenosis in the bilateral renal arteries. 1.4 cm cyst seen left kidney. Electronically signed by : Romario Jarvis MD 04/03/2020 15:17:10
== END ==
PROVIDERS: PCP Internal Medicine; Visit Provider Physician Assistant
DX: E11.8 Type 2 diabetes mellitus with unspecified complications (principal); E66.01 Morbid (severe) obesity due to excess calories; E78.00 Pure hypercholesterolemia, unspecified; I11.9 Hypertensive heart disease without heart failure; I25.118 Atherosclerotic heart disease of native coronary artery with other forms of angina pectoris; R06.00 Dyspnea, unspecified; R42 Dizziness and giddiness; R94.31 Abnormal electrocardiogram [ECG] [EKG]; R94.39 Abnormal result of other cardiovascular function study
CPT/HCPCS: 93976

== ENCOUNTER → 2020-03-30 09:32 | Outpatient (POV) | payer MEDICARE, SELFPAY ==
[2020-03-30 10:39] VITALS: BP 145/88; PULSE 68; RESP 18; TEMP 36.6; O2SAT 98; BMI 39.4
--- NOTE | 2020-03-30 10:47 | HMH.PAINSOAP ---
[facility] Pain Management SOAP Note Subjective:: Patient is a 55-year-old white female who presents today for follow-up. She recently underwent a cervical epidural steroid injection. Patient is being treated for neck and low back pain. She currently has a new Vectra spinal cord stimulator that was placed by Dr. Leal for neck pain. Patient underwent a cervical fusion with spur removal per Dr. Leal in the past. She had hoped this would relieve her neck pain, however, she continued to have pain. As result Dr. Leal did place as new Vectra spinal cord stimulator. The patient did well with her trial, however, once the device was placed, she had difficulty charging the stimulator. The stimulator is malfunctioning. Unfortunately, the patient is unable to charge the system and she is no longer getting relief with the stimulator. She did discuss with Dr. Vincent undergoing a device change out to a [employer] spinal cord stimulator. We are in the process of seeking approval for the patient to undergo stimulator change out. Patient tried all other conservative therapies of physical therapy, injections, and oral medications. She was not considered a further surgical candidate. Patient today is complaining of right shoulder pain. She says that the cervical epidural did give her up to 80% relief, however, she her relief was only up to a week. She says she is having difficulty raising her right arm and would like to undergo a right intra-articular shoulder injection while awaiting her approval for her spinal cord stimulator change out. Patient does have neck and low back pain that radiates into her bilateral lower extremities and her bilateral arms. Review of Systems General: No recent weight changes, no fever, no sleep disturbances Respiratory: No cough, no shortness of air, no recurring pulmonary infections Cardiovascular/peripheral vascular: No chest pain, no palpitations, no edema, no shortness of breath Gastrointestinal: No new onset incontinence, normal bowel movements reported Genitourinary: No new onset incontinence Musculoskeletal: Neck pain, right shoulder pain, low back pain, bilateral lower extremity pain Psychiatric: Normal mood/affect Neurological: [Denies weakness in extremities], [denies balance issues] Objective:: Physical exam General: Alert and oriented x3, no acute distress, pleasant and cooperative, [on room air] Lungs: Respirations even and unlabored, symmetrical chest expansion Eyes: PERRL Musculoskeletal: Flexion and extension of cervical and lumbar spine somewhat guarded secondary to pain, deep tendon reflexes normal, strength in upper and lower extremities [5/5], [abnormal gait noted] Neurological: Speech clear, bicycle messenger equal, no gross sensory deficit Assessment:: 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 She does need a change out of her new Vectra system. Unfortunately new [employer]ect[employer]'s file chapter 11 bankruptcy and she is unable to get reprogrammed or troubleshoot the battery for the stimulator. We will schedule her for a right intra-articular shoulder injection while seeking approval for her stimulator. Patient is not on any anticoagulation therapy. We will see her back after her injection to reassess her symptoms. She has been instructed to contact clinic if she has any concerns before next appointment. The patient and I specifically discussed risk factors for COVID19. These risks include, but are not limited to age greater than 60, heart or lung disease, diabetes, immunosuppression, and travel. We also discussed NSAIDs may worsen COVID19 infection or symptoms. Patient should not use NSAIDs to treat COVID19 signs or symptoms. Patient was also informed that any type of corticosteroid of any form (oral or injection) will decrease the patient's immune syste
== END ==
PROVIDERS: PCP Internal Medicine; Visit Provider Clinical Nurse Specialist Family Health
DX: M50.10 Cervical disc disorder with radiculopathy, unspecified cervical region (principal); M25.511 Pain in right shoulder; I99.8 Other disorder of circulatory system; I10 Essential (primary) hypertension; I20.8 Other forms of angina pectoris; R06.00 Dyspnea, unspecified; R42 Dizziness and giddiness; E66.01 Morbid (severe) obesity due to excess calories; E78.5 Hyperlipidemia, unspecified; E11.9 Type 2 diabetes mellitus without complications; R94.31 Abnormal electrocardiogram [ECG] [EKG]; I25.118 Atherosclerotic heart disease of native coronary artery with other forms of angina pectoris
CPT/HCPCS: 93976; 99212

== ENCOUNTER 2020-04-21 11:10 | Day surgery (SDC) | payer MEDICARE, SELFPAY ==
[2020-04-21 11:59] VITALS: BP 141/81; PULSE 86; RESP 18; TEMP 36.2; O2SAT 98; BMI 41.0
[2020-04-21 12:08] LABS: POC Glucose,Bedside 168 (70-110)
[2020-04-21 12:36] VITALS: BP 135/85; BP 140/78; PULSE 85; PULSE 87; RESP 18; O2SAT 98
--- NOTE | 2020-04-21 12:38 | P.PCN_ITS ---
- Procedure Date: 04/21/20 Time: 12:38 Anesthesiologist:: Virgilio Vincent MD Complications:: None Pre-procedure Diagnosis:: Right shoulder pain with degenerative osteoarthritis Post-procedure Diagnosis:: Same Indications for Procedure:: This patient is a pleasant 55-year-old white female who we are treating for right shoulder pain with degenerative osteoarthritis. She has a Nuvectra cord stimulator in place which is nonfunctioning. We are seeking approval to have that replaced. She did have a epidural steroid injection which did not give her much relief. Most of her pain is in the right shoulder. We will do a right shoulder intra-articular injection and suprascapular nerve block to help with her right shoulder pain. Procedure Details:: Right shoulder injection Informed consent was obtained and the risk and benefits of the procedure were explained to the patient. Patient was taken to the procedure room. The right shoulder was prepped using ChloraPrep. A 25-gauge needle was used to inject 10 mL bupivacaine 0.25% and Depo-Medrol 40 mg into the right suprascapular nerve and right shoulder joint. Patient tolerated the procedure well with no c omplications. Plan and Disposition:: Plan and disposition: We will follow-up with this patient in 2 weeks. Will reevaluate her symptoms at that time. She is having some increasing low back pain and left leg pain. I do believe she would benefit from a lumbar epidural steroid injection. We will seek approval for lumbar epidural steroid injection under fluoroscopy to help with her low back pain and left leg pain.
[2020-04-21 12:46] VITALS: BP 139/91; PULSE 81; RESP 20; O2SAT 98
== END 2020-04-21 12:47 | disposition home or self-care (01) ==
LOC: SC.PAINP 11:10
PROVIDERS: PCP Internal Medicine; Visit Provider Anesthesiology
DX: M19.011 Primary osteoarthritis, right shoulder; I11.9 Hypertensive heart disease without heart failure; Z79.890 Hormone replacement therapy; G47.00 Insomnia, unspecified; I51.7 Cardiomegaly; E78.5 Hyperlipidemia, unspecified; I25.10 Atherosclerotic heart disease of native coronary artery without angina pectoris
CPT/HCPCS: 20610; 77002; 82962; J1040

== ENCOUNTER 2020-05-01 08:38 | Day surgery (SDC) | payer MEDICARE, SELFPAY ==
[2020-05-01] VITALS (11 sets, daily range): BP systolic 118–146; BP diastolic 66–86; PULSE 57–86; RESP 14–18; TEMP 36.8; O2SAT 90–98; BMI 40.2
--- NOTE | 2020-05-01 | IR_ITS ---
APPROVED REPORT Patient Location: Outpatient Used Car Renovator: JAMES Canada RT (R) PROCEDURES Left heart catheterization Left ventriculogram Selective coronary angiogram INDICATION Abnormal stress test, Angina pectoris Informed consent was obtained prior to the procedure. COMPLICATIONS None Estimated Blood Loss: less than 10 ml. TECHNIQUE One percent lidocaine used to anesthetize the right anterior aspect of the wrist. The right radial artery was accessed via the Seldinger technique. A 6 Romansh sheath was placed in the right radial artery. 2.5 mg of verapamil, 800 mcg of nitroglycerin, 1mg Lidocaine and 5000 U Heparin were given through the arterial sheath. The trap catheter was also used to perform left heart catheterization, left ventriculogram and selective coronary angiogram. At the end of the procedure the sheath was removed good hemostasis was achieved using Traclet band, patient was transferred to the postop holding area in stable condition. ANGIOGRAPHIC RESULTS The left main artery Normal The left anterior descending artery Normal The circumflex artery Normal The right coronary artery Dominant normal The REYNOSO ventriculogram reveals 65% The left ventricular end-diastolic pressure Moderately elevated at 25 mmHg IMPRESSION Normal coronary arteries Normal ejection fraction Elevated EDP consistent with diastolic dysfunction PLAN 1. Medical management Electronically signed by : Fredi Clemons, 05/01/2020 11:36:11
[2020-05-01 09:11] LABS: Basophils # 0.1 K/mm3 (0-0.2); Basophils % 0.6 % (0.1-2.0); Eosinophils # 0.3 K/mm3 (0.0-0.4); Eosinophils % 2.6 % (0.1-12.0); Hematocrit 38.9 % (37.0-47.0); Hemoglobin 12.7 g/dL (12.2-16.2); Lymphocytes # 4.4 K/mm3 (0.7-4.5); Lymphocytes % 44.2 % (10-50); Mean Corpuscular HGB Conc 32.7 g/dL (31.8-35.4); Mean Corpuscular Hemoglobin 29.4 pg (27.0-31.2); Mean Corpuscular Volume 89.8 fl (81-99); Mean Platelet Volume 7.8 fl (7.4-10.4); Monocytes # 0.6 K/mm3 (0.1-1.0); Neutrophils # 4.6 K/mm3 (1.8-7.8); Neutrophils % 46.6 % (37.0-80.0); Platelet Count 534 K/mm3 (142-424); Red Blood Count 4.33 M/mm3 (4.20-5.40); Red Cell Distribution Width 16.2 % (11.5-17.5); White Blood Count 9.9 K/mm3 (4.8-10.8)
[2020-05-01 09:16] LABS: Anion Gap 14.4 mEq/L (5-15); Blood Urea Nitrogen 13 mg/dl (7-17); Calcium 9.8 mg/dl (8.4-10.2); Carbon Dioxide 29 mmol/L (22.0-30.0); Chloride 100 mmol/L (98-107); Creatinine Clearance Estimated 127 mL/min (50-200); Estimated Glomerular Filt Rate 65 ml/min (>60); GFR (African American) 78 ML/MIN (>60); Glucose 155 mg/dl (74-100); Potassium 3.4 mmoL/L (3.5-5.1); Sodium 140 mmol/L (136-145)
[2020-05-01 09:35] LABS: Coronavirus 19 IgG Antibody Negative (Negative); Coronavirus 19 IgM Antibody Negative (Negative)
== END 2020-05-01 14:15 | disposition home or self-care (01) ==
LOC: CATHLAB 08:40
PROVIDERS: PCP Internal Medicine; Visit Provider Internal Medicine
DX: I25.118 Atherosclerotic heart disease of native coronary artery with other forms of angina pectoris (principal); I11.0 Hypertensive heart disease with heart failure; I50.30 Unspecified diastolic (congestive) heart failure; Z79.899 Other long term (current) drug therapy; E11.9 Type 2 diabetes mellitus without complications; Z79.4 Long term (current) use of insulin; Z79.82 Long term (current) use of aspirin
CPT/HCPCS: 80048; 85025; 86328; 93458; 99152; C1725; C1769; J1644; Q9967

== ENCOUNTER → 2020-05-05 14:15 | Outpatient (CLI) | payer MEDICARE, SELFPAY ==
--- NOTE | 2020-05-05 14:18 | CT_ITS ---
PROCEDURE: CT LUMBAR SPINE WO CON CLINICAL HISTORY: BACK PAIN NO PRIOR XRAYS ON PACS COMPARISON: No exams were available for comparison TECHNIQUE: Axial images obtained with sagittal and coronal reformats. All CT scans at the facility use one or more dose reduction, viz: automated exposure control, ma/kV adjustment per patient size (including targeted exams where dose is matched to indication, i.e. head), or iterative reconstruction technique. FINDINGS: There is multilevel lumbar spondylosis and described below. No acute fracture or dislocation. No lytic or blastic change is evident. T11-T12: Degenerative disc disease with bulging disc and endplate irregularity. There is canal stenosis at 9 mm with mild left-sided foraminal narrowing. T12-L1: Degenerative disc disease with endplate irregularity. There is a small right paracentral disc osteophyte complex causing moderate right-sided lateral recess narrowing. L1-L2: Degenerate disc disease with endplate irregularity and bulging disc which is eccentric toward the right with prominent marginal osteophytes on the right laterally. There is moderate to severe right-sided foraminal narrowing and moderate left foraminal narrowing. There is a prominent osteophyte in the right paracentral region along the superior aspect of L2 just inferior to the disc space at L1-L2 causing right lateral recess narrowing and may be impinging upon the L2 nerve root. L2-L3: Degenerative disc disease with bulging disc which is eccentric toward the right with facet ligamentum hypertrophy with moderate to severe right foraminal narrowing and mild left foraminal narrowing. L3-L4: There is 4 mm anterolisthesis of L3 with bulging disc along with severe facet and ligamentum hypertrophy resulting in severe canal stenosis of 5 mm along with severe bilateral lateral recess narrowing and mild bilateral foraminal narrowing. L4-5: Degenerative disc disease with bulging disc and endplate spurring along facet and ligamentum hypertrophy with moderate canal stenosis and moderate left-sided foraminal narrowing. L5-S1: Degenerate disc disease with bulging disc and broad-based central disc osteophyte complex with facet and ligamentum hypertrophy with moderate bilateral foraminal narrowing and bilateral lateral recess narrowing. IMPRESSION: Multilevel lumbar spondylosis as detailed above with multiple levels of canal stenosis with lateral recess and foraminal narrowing. There is severe canal stenosis at L3-L4. Please see above for detailed description at each level. Dictated by: Romario Jarvis MD 05/06/2020:03 Romario Jarvis MD in [place] 05/06/2020 10:03
--- NOTE | 2020-05-05 14:31 | CT_ITS ---
PROCEDURE: CT CERVICAL SPINE WO CON CLINICAL INDICATION: NECK PAIN PRIOR 08/17/17 COMPARISON: CT CSW CT CERVICAL SPINE from 08/17/2017 TECHNIQUE: Axial images obtained with sagittal and coronal reformats. All CT scans at the facility use one or more dose reduction, viz: automated exposure control, ma/kV adjustment per patient size (including targeted exams where dose is matched to indication, i.e. head), or iterative reconstruction technique. Axial spiral CT scanning performed of the cervical spine beginning at the base of the skull and continuing to the upper T-spine. 3-D multiplanar reconstruction with 3-D manipulation of volumetric data set in image rendering was completed by the radiologist and/or technologist with the supervision of the radiologist on independent workstation. FINDINGS: There has been interval anterior cervical disc fusion from C4-C7. There is good alignment. C2-C3: Mild degenerative disc disease with mild right lateral recess narrowing from facet and uncovertebral hypertrophy and mild bilateral lateral recess narrowing. C3-C4: Degenerate disc disease with moderate to severe left-sided foraminal narrowing and bilateral lateral recess narrowing with narrowing of the canal at 11 mm. C4-C5: Postsurgical changes with severe right-sided foraminal narrowing from facet and uncovertebral hypertrophy and mild to moderate left foraminal narrowing. Artifact from the postsurgical change. Disc spacer device. Borderline narrowing of the canal. C5-C6: Postsurgical changes with a left paracentral disc osteophyte complex causing left lateral recess narrowing. Uncovertebral hypertrophy is present with left sided foraminal narrowing. This is similar compared to the previous exam. C6-C7: Degenerate disc disease with postsurgical changes. There is severe canal stenosis at 8 mm along with posterior osteophytes centrally and on the left at this level causing severe left-sided foraminal narrowing and left severe left-sided lateral recess narrowing also with moderate right lateral recess and foraminal narrowing. Posterior longitudinal at level ligament calcification also noted. This appears similar compared to the previous exam. C7-T1: Degenerative disc disease. Lung apices are clear. The trachea has a concave appearance and may be seen with tracheomalacia. There is mild mucosal thickening of the sphenoid sinus. IMPRESSION: 1. Postsurgical changes with good alignment. 2. Multilevel cervical spondylosis with canal stenosis with disc osteophyte complexes and posterior osteophytes with lateral recess and foraminal narrowing. Please see above for detailed description at each level Dictated by: Romario Jarvis MD 05/06/2020 09:46 Romario Jarvis MD in [place] 05/06/2020 09:46
== END ==
PROVIDERS: PCP Internal Medicine; Visit Provider Anesthesiology
DX: M54.2 Cervicalgia (principal); M54.5 Low back pain
CPT/HCPCS: 72125; 72131

== ENCOUNTER → 2020-05-15 14:53 | Outpatient (CLI) | payer MEDICARE, SELFPAY ==
[2020-05-15 16:21] LABS: Anion Gap 15.8 mEq/L (5-15); Blood Urea Nitrogen 20 mg/dl (7-17); Carbon Dioxide 31 mmol/L (22.0-30.0); Chloride 98 mmol/L (98-107); Estimated Glomerular Filt Rate 65 ml/min (>60); GFR (African American) 78 ML/MIN (>60); Glucose 95 mg/dl (74-100); Potassium 3.8 mmoL/L (3.5-5.1); Sodium 141 mmol/L (136-145)
== END ==
PROVIDERS: Visit Provider Urology
DX: E11.8 Type 2 diabetes mellitus with unspecified complications (principal); E66.01 Morbid (severe) obesity due to excess calories; E78.00 Pure hypercholesterolemia, unspecified; I10 Essential (primary) hypertension; I11.9 Hypertensive heart disease without heart failure; I51.7 Cardiomegaly; R06.00 Dyspnea, unspecified
CPT/HCPCS: 36415; 80048

== ENCOUNTER 2020-05-19 11:12 | Day surgery (SDC) | payer MEDICARE, SELFPAY ==
[2020-05-19 11:28] LABS: POC Glucose,Bedside 181 (70-110)
[2020-05-19 11:55] VITALS: BP 149/76; PULSE 96; RESP 20; O2SAT 99
[2020-05-19 11:56] VITALS: BP 140/74; PULSE 85; RESP 18; O2SAT 98
[2020-05-19 11:58] VITALS: BP 142/78; BP 156/79; PULSE 79; PULSE 92; RESP 18; RESP 20; TEMP 36.4; O2SAT 98; O2SAT 99; BMI 39.4
--- NOTE | 2020-05-19 12:41 | HMH.PMPROC ---
- Procedure Date: 05/19/20 Time: 12:41 Anesthesiologist:: Virgilio Vincent MD Complications:: None Pre-procedure Diagnosis:: Degenerative disc disease of lumbar spine with lumbar radiculopathy symptoms Post-procedure Diagnosis:: Same Indications for Procedure:: This patient is a pleasant 55-year-old white female who we have previously treated for right shoulder pain with degenerative osteoarthritis. She has some increasing low back pain radiating down her legs. We will do a lumbar epidural steroid injection today to see if this helps with her pain symptoms. Procedure Details:: Lumbar epidural steroid injection under fluoroscopy Informed consent was obtained and the risk and benefits of the procedure was explained to the patient. The patient was taken to the procedure room. The patient was placed prone on the procedure table. The patient was prepped and draped in sterile fashion. C-arm fluoroscopy was used to view the lumbar spine. Skin and subcutaneous tissues were anesthetized using lidocaine. I placed an 18-gauge epidural needle and advanced into the L4-L5 interspace using fluoroscopic guidance and [id number] to air. After confirmation of needle placement in the epidural space with dye I injected 2 mL of lidocaine 1.5% with Depo-Medrol 80 mg. Patient tolerated the procedure well with no complications. Plan and Disposition:: We will follow-up with her in 2 weeks. Will reevaluate her symptoms at that time.
== END 2020-05-19 11:55 | disposition home or self-care (01) ==
LOC: SC.PAINP 11:13
PROVIDERS: PCP Internal Medicine; Visit Provider Anesthesiology
DX: M51.16 Intervertebral disc disorders with radiculopathy, lumbar region (principal); E11.9 Type 2 diabetes mellitus without complications; I10 Essential (primary) hypertension; E78.5 Hyperlipidemia, unspecified; I25.10 Atherosclerotic heart disease of native coronary artery without angina pectoris; Z88.8 Allergy status to other drugs, medicaments and biological substances; Z79.899 Other long term (current) drug therapy; Z79.82 Long term (current) use of aspirin; Z79.890 Hormone replacement therapy; Z79.84 Long term (current) use of oral hypoglycemic drugs; Z79.4 Long term (current) use of insulin; I51.7 Cardiomegaly; G47.00 Insomnia, unspecified
CPT/HCPCS: 62323; 82962; J1040; Q9966

== ENCOUNTER → 2020-06-12 10:30 | Outpatient (POV) | payer MEDICARE, SELFPAY ==
[2020-06-12 10:42] VITALS: BP 133/78; PULSE 74; RESP 18; O2SAT 98; BMI 39.4
--- NOTE | 2020-06-12 11:57 | HMH.PAINSOAP ---
[facility] Pain Management SOAP Note Subjective:: Patient is a pleasant 55-year-old white female who we are treating for neck and low back pain. She is following up after lumbar epidural steroid injection. She did well with this however she recently fell off of a chair while working on her air conditioning. Patient has a nuvectra neurostimulator that is scheduled to be replaced this month. Patient was originally trialed with leads at C3-C4-C5 and at T7-T8-T9. Patient however was sent for surgical implant of paddle leads. Patient only had lumbar paddle lead placed and had ACDF of her neck. She is still having quite a lot of neck and right arm pain. This is not resolved. Patient states that her neurostimulator was very beneficial for her. Patient wants to move forward with having it replaced. We will replace it with a [employer] system. She rates her pain today an 8 out of 10 mostly in her neck and down her right arm. ROS General: no recent weight change, no fever, no sleep disturbances Respiratory: no cough, no shortness of air, no recurring pulmonary infections Cardiovascular/Peripheral Vascular: No chest pain, No palpitations, no edema, no shortness of breath. Gastrointestinal: no new onset incontinence, normal bowel movements reported Genitourinary: no new onset incontinence Musculoskeletal: Neck pain, arm pain, back pain, leg pain Psychiatric: normal mood/ affect Neurological: [denies new onset weakness in extremities], [denies new onset balance issues] Objective:: Physical Exam General: Alert and oriented x3, no acute distress, pleasant and cooperative, [on room air] Lungs: Resps E/U, Symmetrical chest expansion, Eyes: PERRL Musculoskeletal: Flexion and extension of cervical and lumbar spine somewhat guarded secondary to pain, deep tendon reflexes normal, strength in upper and lower extremities [5/5], [abnormal gait noted] Neurological: speech clear, proposal coordinator equal, no gross sensory deficits Assessment:: Degenerative disc disease cervical spine cervical radiculopathy, postlaminectomy cervical spine, degenerative disc disease lumbar spine lumbar radiculopathy Plan:: Patient is set up for replacement of her new [employer] neurostimulator with a [employer] system. When patient was trialed she was trialed with both the cervical and the thoracic lead. Patient however was only implanted with a thoracic paddle lead and went forward with a cervical fusion. I will follow-up with the patient after her replacement of systems. Patient's been instructed to call the office if she has any issues prior to next appointment. Dr. Vincent has reviewed this note and agrees with this plan of care. This note was dictated using voice recognition software and may contain errors or omissions [facility] History I have reviewed the patient's past medical history: Yes Medical History: Reports:: Asthma, Coronary Artery Disease, Diabetes Mellitus Type 2, Gastroesophageal Reflux Disease(GERD), Hyperlipidemia, Hypertension Denies:: Cancer, Diabetes Mellitus Type 1, Internal Pacemaker, MRSA, Seizures *Have you ever received a pneumonia vaccine?: Yes *Have you received a flu vaccine this season?: Yes Other Medical History: Reports: Arthritis, Thyroid Disease. Denies: Blood Transfusion Reaction Laterality Cases: Left: Arthroscopy Shoulder, Lumpectomy Other Surgeries: Yes: No Previous Surgery, Cholecystectomy, Colonoscopy, Diagnostic Lap, Hernia Repair, Hysterectomy-Total, Tubal Ligation, Other (neurostimulator implant). 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
== END ==
PROVIDERS: PCP Internal Medicine; Visit Provider Clinical Nurse Specialist Family Health
DX: M50.10 Cervical disc disorder with radiculopathy, unspecified cervical region (principal); M96.1 Postlaminectomy syndrome, not elsewhere classified; M51.16 Intervertebral disc disorders with radiculopathy, lumbar region
CPT/HCPCS: 99212

== ENCOUNTER → 2020-07-06 11:46 | Outpatient (POV) | payer MEDICARE, MEDICAID, SELFPAY ==
--- NOTE | 2020-07-06 12:20 | HMH.PAINSOAP ---
[facility] Pain Management SOAP Note Subjective:: Patient is a 55-year-old white female who presents today for follow-up. She has been treated for chronic low back pain with lumbar radiculopathy symptoms. She is also being treated for neck pain with cervical radiculopathy symptoms. She does have a new [employer] spinal cord stimulator that is no longer functioning. She is scheduled to undergo a change out of the system for with a [employer] stimulator. She is here today and rating her pain a 9 out of 10. She is having pain throughout her entire body. Patient says she is on gabapentin 800 mg 1 tablet p.o. 3 times daily. She wants an increase and is asking for oral medications today. Review of Systems General: No recent weight changes, no fever, no sleep disturbances Respiratory: No cough, no shortness of air, no recurring pulmonary infections Cardiovascular/peripheral vascular: No chest pain, no palpitations, no edema, no shortness of breath Gastrointestinal: No new onset incontinence, normal bowel movements reported Genitourinary: No new onset incontinence Musculoskeletal: Generalized body pain Psychiatric: Normal mood/affect Neurological: [Denies weakness in extremities], [denies balance issues] Objective:: Physical exam General: Alert and oriented x3, no acute distress, pleasant and cooperative, [on room air] Lungs: Respirations even and unlabored, symmetrical chest expansion Eyes: PERRL Musculoskeletal: Flexion and extension of cervical, thoracic, lumbar spine somewhat guarded secondary to pain, deep tendon reflexes normal, strength in upper and lower extremities [5/5], normal gait noted Neurological: Speech clear, 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 She does understand that we will not be able to provide her with any oral opiates today. She is scheduled for change out of her system. She is also asking for gabapentin increase. Patient's Berto report is not showing any gabapentin being prescribed, however, we do prescribe the patient in the clinic gabapentin 800 mg 1 tablet p.o. 3 times daily. She understands if we do increase her to 4 times daily it is the maximum dose of gabapentin. After her spinal cord stimulator is placed, she and I did discuss weaning back to 3 times daily with gabapentin. She understands this will not be a long-term dose for her. She is in agreement. We we will increase her to gabapentin 800 mg 1 tablet p.o. 4 times daily for now. We will see her back in the clinic after her stimulator placement to reassess her symptoms. She has been instructed to contact clinic if she has any concerns for next appointment. The patient and I specifically discussed risk factors for COVID19. These risks include, but are not limited to age greater than 60, heart or lung disease, diabetes, immunosuppression, and travel. We also discussed NSAIDs may worsen COVID19 infection or symptoms. Patient should not use NSAIDs to treat COVID19 signs or symptoms. Patient was also informed that any type of corticosteroid of any form (oral or injection) will decrease the patient's immune system response and may increase the likelihood of COVID19 infection and symptoms[address] Dr. Vincent has reviewed this note and agrees with this plan of care. This note was dictated using voice recognition software and make contain errors or omissions. [facility] History I have reviewed the patient's past medical history: Yes Medical History: Reports:: Asthma, Coronary Artery Disease, Diabetes Mellitus Type 2, Gastroesophageal Reflux Disease(GERD), Hyperlipidemia, Hypertension Denies:: Cancer, Diabetes Mellitus Type 1, Internal Pacemaker, MRSA, Seizures *Have you ever received a pneumonia vaccine?: Yes *Have
[2020-07-06 12:27] VITALS: BP 125/85; PULSE 85; RESP 18; TEMP 36.8; O2SAT 98; BMI 39.4
== END ==
PROVIDERS: PCP Internal Medicine; Visit Provider Clinical Nurse Specialist Family Health
DX: M51.16 Intervertebral disc disorders with radiculopathy, lumbar region (principal); M50.10 Cervical disc disorder with radiculopathy, unspecified cervical region; M96.1 Postlaminectomy syndrome, not elsewhere classified
CPT/HCPCS: 99212

== ENCOUNTER → 2020-07-18 10:37 | Outpatient (CLI) | payer MEDICARE, SELFPAY ==
[2020-07-18 11:35] LABS: Basophils # 0.1 K/mm3 (0-0.2); Basophils % 0.6 % (0.1-2.0); Eosinophils # 0.6 K/mm3 (0.0-0.4); Eosinophils % 5.7 % (0.1-12.0); Hematocrit 41.8 % (37.0-47.0); Hemoglobin 12.9 g/dL (12.2-16.2); Lymphocytes # 2.9 K/mm3 (0.7-4.5); Lymphocytes % 30.3 % (10-50); Mean Corpuscular HGB Conc 30.9 g/dL (31.8-35.4); Mean Corpuscular Hemoglobin 27.8 pg (27.0-31.2); Mean Corpuscular Volume 89.9 fl (81-99); Mean Platelet Volume 7.5 fl (7.4-10.4); Monocytes # 0.6 K/mm3 (0.1-1.0); Monocytes % 6.2 % (1.7-9.3); Neutrophils # 5.5 K/mm3 (1.8-7.8); Platelet Count 454 K/mm3 (142-424); Red Blood Count 4.65 M/mm3 (4.20-5.40); Red Cell Distribution Width 16.3 % (11.5-17.5); White Blood Count 9.6 K/mm3 (4.8-10.8)
[2020-07-18 13:17] LABS: Anion Gap 16.4 mEq/L (5-15); Blood Urea Nitrogen 20 mg/dl (7-17); Calcium 9.8 mg/dl (8.4-10.2); Carbon Dioxide 26 mmol/L (22.0-30.0); Chloride 100 mmol/L (98-107); Estimated Glomerular Filt Rate 57 ml/min (>60); GFR (African American) 69 ML/MIN (>60); Glucose 228 mg/dl (74-100); Potassium 4.4 mmoL/L (3.5-5.1); Sodium 138 mmol/L (136-145)
[2020-07-18 15:26] LABS: Coronavirus 19 IgG Antibody Negative (Negative); Coronavirus 19 IgM Antibody Negative (Negative)
== END ==
PROVIDERS: Visit Provider Anesthesiology
DX: Z01.818 Encounter for other preprocedural examination (principal); M51.36 Other intervertebral disc degeneration, lumbar region
CPT/HCPCS: 36415; 80048; 85025; 86328

== ENCOUNTER 2020-07-19 10:30 | Day surgery (SDC) | payer MEDICARE, SELFPAY ==
[2020-06-19 14:16] VITALS: BMI 39.4
[2020-07-19] VITALS (7 sets, daily range): BP systolic 119–137; BP diastolic 64–78; PULSE 79–96; RESP 16–18; TEMP 36.6–37.2; O2SAT 96–98
[2020-07-19 11:37] LABS: POC Glucose,Bedside 202 (70-110)
--- NOTE | 2020-07-19 12:21 | HMH.ANESCL ---
[facility] Anesthesia Checklist - Patient Identification Patient Identification: Arm Band, Verbal (Name & ) - Structural Data Admitted From: Home Planned Operative Procedure/s: neuro stim gen change Consent for Planned Operative Procedure(s) Verified: Yes Verified Documents: History and Physical - NPO Status Verified Time NPO: 00:00 - Additional verifications Patient : No Anesthesia Reactions: No Hx Blood Transfusions: No Blood Transfusion Reaction: No Cephalosporin Allergy: No Previous Colonoscopy: No - Cardiovascular Assessment Heart Sounds: S1 & S2 Pulse Strength: Baseline Pulse Rhythm: Regular Peripheral Edema: No - Airway Assessment C-Spine Mobility Assessed: Yes TMJ Mobility Assessed: Yes Dentition: Good Dentition - Neurological Assessment Level of Consciousness: Awake, Alert, Appropriate Hx Seizures: No Numbness or tingling in extremities: No - Anesthesia Plan Anesthesia Risk discussed: Yes Anesthesia Plan: Verified ASA Class: III Anesthesia Type: MAC [facility] History I have reviewed the patient's past medical history: Yes Medical History: Reports:: Asthma, Coronary Artery Disease, Diabetes Mellitus Type 2, Gastroesophageal Reflux Disease(GERD), Hyperlipidemia, Hypertension Denies:: Cancer, Diabetes Mellitus Type 1, Internal Pacemaker, MRSA, Seizures *Have you ever received a pneumonia vaccine?: Yes *Have you received a flu vaccine this season?: Yes Other Medical History: Reports: Arthritis, Thyroid Disease. Denies: Blood Transfusion Reaction Anesthesia experience/problems:: none Laterality Cases: Left: Arthroscopy Shoulder, Lumpectomy Other Surgeries: Yes: No Previous Surgery, Cholecystectomy, Colonoscopy, Diagnostic Lap, Hernia Repair, Hysterectomy-Total, Tubal Ligation, Other (neurostimulator implant). 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
--- NOTE | 2020-07-19 13:19 | HMH.PMCON ---
Assessment and Plan - Assessment and plan all Dx Assessment and Plan for all problems:: Impression-malfunctioning pain stimulator system Plan-removal and replacement of pain stimulator system HPI - Data of Consult Patient: new to practice Consult date: 07/19/20 Requesting Physician: Virgilio Vincent MD Primary Care Provider: Moose Chavarria - Consult Narrative History of present illness: Ms. Kinsey is a 55 year old female who currently has a malfunctioning neurostimulator system. She comes in today for a change out of her neurostimulator system with the [employer] system CC: Virgilio Vincent MD Chronic back pain [facility] History Medical History: Reports:: Asthma, Coronary Artery Disease, Diabetes Mellitus Type 2, Gastroesophageal Reflux Disease(GERD), Hyperlipidemia, Hypertension Denies:: Cancer, Diabetes Mellitus Type 1, Internal Pacemaker, MRSA, Seizures *Have you ever received a pneumonia vaccine?: Yes *Have you received a flu vaccine this season?: Yes Other Medical History: Reports: Arthritis, Thyroid Disease. Denies: Blood Transfusion Reaction Comment:: Illnesses-hypertension, hyperlipidemia, coronary artery disease, diabetes mellitus, GERD, depression Anesthesia experience/problems:: none Laterality Cases: Left: Arthroscopy Shoulder, Lumpectomy Other Surgeries: Yes: No Previous Surgery, Cholecystectomy, Colonoscopy, Diagnostic Lap, Hernia Repair, Hysterectomy-Total, Tubal Ligation, Other (neurostimulator implant). 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, Spontaneous Review of Systems - Review of Systems Review of systems:: pertinent systems reviewed and negative unless documented below Meds Home Medications Medication Instructions Recorded Confirmed Type allopurinol 300 mg tablet 300 mg PO QDAY 09/11/17 07/19/20 History aspirin 81 mg tablet,delayed 81 mg PO QDAY 09/11/17 07/19/20 History release buspirone 15 mg tablet 30 mg PO BID tab 09/11/17 07/19/20 History cholecalciferol (vitamin D3) 50 2,000 unit PO QDAY cap 09/11/17 07/19/20 History mcg (2,000 unit) capsule insulin aspar prt-insulin aspart 40 unit SUB-Q QAM ml 09/11/17 07/19/20 History 100 unit/mL (70-30) subcutaneous soln pravastatin 40 mg tablet 40 mg PO QHS 09/11/17 07/19/20 History topiramate 50 mg tablet 50 mg PO QHS tab 09/11/17 07/19/20 History venlafaxine 150 mg 150 mg PO QDAY 09/11/17 07/19/20 History capsule,extended release 24 hr venlafaxine 75 mg capsule,extended 75 mg PO QDAY 09/11/17 07/19/20 History release 24 hr insulin aspar prt-insulin aspart 20 unit SUB-Q QPM ml 02/06/18 07/19/20 History 100 unit/mL (70-30) subcutaneous soln furosemide 40 mg tablet 40 mg PO BID tab 06/05/18 07/19/20 History hydroxyzine pamoate 25 mg capsule 25 mg PO BID cap 06/05/18 07/19/20 History metformin 500 mg tablet 1,500 mg PO QPM tab 06/05/18 07/19/20 History potassium chloride 20 mEq oral 20 meq PO BID 06/05/18 07/19/20 History packet Gabapentin [Neurontin 800mg Tab] 800 mg PO TID 02/11/20 07/19/20 History Meloxicam [Mobic 15 mg tab] 15 mg PO DAILY 03/10/20 07/19/20 History Metoprolol Succinate [Metoprolol 50 mg PO DAILY 03/10/20 07/19/20 History Succinate 25mg Tablet*] nitroglycerin 0.4 mg sublingual 0.4 mg SUBLINGUAL Q5M PRN #20 tab 03/27/20 07/19/20 Rx tablet Tizanidine HCl [Zanaflex 4mg 4 mg PO TID 04/21/20 07/19/20 History tab] esomeprazole magnesium 20 mg 20 mg PO BID cap 04/24/20 07/19/20 History capsule,delayed release
--- NOTE | 2020-07-19 14:22 | HMH.OPNOTE ---
Date of procedure: 07/19/20 Pre-op Diagnosis:: Degenerative disc disease of the lumbar spine with radiculopathy, malfunctioning pain stimulator system Post-op Diagnosis:: Same Procedure performed:: Removal and replacement of pain stimulator generator Surgeon:: Arnold Ball MD NON FERROUS MATERIAL HANDLER:: Raheem Ruiz, Phong Mckinney, Ty Carrasquillo, Jama Kaur, Other Anesthesia: MAC Estimated blood loss (mL): 5 Operative findings:: Not applicable Operative note:: Once adequate IV sedation was obtained via anesthesia the patient was placed prone on the operating table and her back and flank regions were prepped and draped in sterile fashion. An incision was made over the stimulator generator and with careful dissection was removed. The lead was amputated at the edge of the pocket. At this point a paraspinal incision was made by Dr. Schaeffer which 2 epidural leads were placed in the epidural space to the area desired by Dr. Harris. These leads were fixed the paraspinal fascia with fixation devices and 2-0 Prolene suture. Utilizing the tunneling device the leads were passed from the paraspinal incision to the old pocket incision. Leads connected to the generator.. Generator placed in the pocket noted to be functioning properly. Both pockets irrigated with antibiotic solution. Subcutaneous tissues closed with 2-0 Vicryl. Skin closed arm stitches of 4-0 nylon. Wound VAC dressings and a binder applied to the incisions. Patient Toller procedure well and was taken to the recovery room in stable condition. Upon recovery the patient will be discharged home will follow-up 1 week for removal of the wound VAC system and in 2 weeks for removal of the stitches. Antibiotic x1 week per protocol. The patient tolerated the procedure well Condition: stable Disposition: PACU Complications:: None
--- NOTE | 2020-07-19 14:41 | HMH.OPNOTE ---
Date of procedure: 07/19/20 Pre-op Diagnosis:: Degenerative disc disease of lumbar spine with lumbar radiculopathy symptoms and nonfunctioning spinal cord stimulator system. Post-op Diagnosis:: Same Procedure performed:: Spinal cord stimulator lead placement epidural x2 for replacement of spinal cord stimulator system Surgeon:: Virgilio Vincent MD COKE BURNER:: Raheem Ruiz Anesthesia: MAC Estimated blood loss (mL): 5 Clinical Note:: This patient is a pleasant 55-year-old white female who has a nonfunctioning Nuvectra spinal cord stimulator system in place with a paddle lead at the T8 vertebral body. She is also had a previous ACDF. She has increasing neck pain with cervical radicular symptoms and low back pain with lumbar radicular symptoms. We can only put 2 leads and so we will cover her low back pain with lumbar radicular symptoms. We will have to put these percutaneous leads just below her paddle lead. I have talked to the patient about this. She has failed all previous conservative therapy including physical therapy, injections, oral medications and previous surgery. We will plan on replacement of spinal cord stimulator system today with a Mobile [employer] system. Operative findings:: None Operative note:: Informed consent was obtained and the risk and benefits of the procedure was explained to the patient. Patient was taken to the procedure room. The back was prepped using ChloraPrep. The skin and subcutaneous tissues were anesthetized using lidocaine. Dr. Ball remove the spinal cord stimulator battery and cuff the leads since paddle leads were in place and adhered to the dura. I anesthetized the skin and subcutaneous tissues adjacent to the L3-L4 interspace. I made an incision and dissected down to the lumbar paraspinous fascia. A 17-gauge epidural needle was inserted and advanced into the L2-L3 interspace. After confirmation of needle placement in the epidural space stimulating lead was inserted and advanced very easily to the T9-T10 vertebral bodies. This was just below the paddle lead. We were unable to advance any further. Lead placement was checked in AP and lateral views. A second needle was then inserted and advanced again into the L2-L3 interspace. Again after confirmation of needle placement in the epidural space a second stimulating lead was inserted and advanced very easily again to the T9-T10 vertebral body. Again this was just below the paddle lead. Again we were unable to advance any further. Lead placement was checked again in AP and lateral views. The needles were removed. The leads were secured in place with anchoring devices and 2-0 Prolene. I tunneled the leads from the back to the generator pocket and attached the leads to the generator. Impedances were checked and found to be okay except for 1 contact on the right lead. All other contacts were found to be okay. After troubleshooting we are still unable to get that contact to light up. All other contacts were found to be okay so the battery was placed in the pocket and after irrigating both incisions with bacitracin solution both incisions were then closed with 2-0 Vicryl followed by 4-0 nylon. A wound VAC was placed over both incisions. Patient was placed in an abdominal binder and taken recovery in stable condition. Patient tolerated the procedure well with no complications. Patient was programmed by the [employer] personal service representative with good stimulation in all areas of the pain. Patient was placed on a paresthesia free fast program. Patient was discharged home neurologically intact with good relief of pain symptoms. Plan and disposition: We will follow-up with this patient in 1 week for wound check and reprogramming. We will follow-up in 2 weeks for suture removal. If the patient has any problems or questions she is to call us back in the pain clinic. Condition: stable Disposition: PACU Complications:: None
== END 2020-07-19 17:06 | disposition home or self-care (01) ==
LOC: OR 10:32
PROVIDERS: PCP Internal Medicine; Visit Provider Anesthesiology
DX: T85.192A Other mechanical complication of implanted electronic neurostimulator of spinal cord electrode (lead), initial encounter (principal); M51.16 Intervertebral disc disorders with radiculopathy, lumbar region; M54.12 Radiculopathy, cervical region; E11.9 Type 2 diabetes mellitus without complications; I25.10 Atherosclerotic heart disease of native coronary artery without angina pectoris; J45.909 Unspecified asthma, uncomplicated; K21.9 Gastro-esophageal reflux disease without esophagitis; E78.5 Hyperlipidemia, unspecified; I10 Essential (primary) hypertension; E07.9 Disorder of thyroid, unspecified; F32.9 Major depressive disorder, single episode, unspecified; Z87.39 Personal history of other diseases of the musculoskeletal system and connective tissue
CPT/HCPCS: 63650 ×2; 63685; 82962; 96374; C1778; C1820; J3370

== ENCOUNTER → 2020-07-28 12:25 | Outpatient (POV) | payer MEDICARE, SELFPAY ==
[2020-07-28 12:48] VITALS: BP 167/77; PULSE 78; RESP 18; TEMP 36.6; O2SAT 98; BMI 39.4
--- NOTE | 2020-07-28 13:31 | HMH.PAINSOAP ---
[facility] Pain Management SOAP Note Subjective:: This patient is a pleasant 55-year-old white female who is 1 week status post replacement of her spinal cord stimulator system. She had a previous paddle lead so we did place 2 percutaneous leads below her paddle lead. This does cover her low back pain and leg pain. She is being reprogrammed today. Other than this she is doing very well with her new spinal cord stimulator system. Her incisions are healing very nicely. Overall she is recovering very well. Objective:: Alert and oriented x3 in no acute distress. Patient does have an antalgic gait. Motor strength of the lower extremities is 5/5. There is no gross sensory deficit. Incisions are healing very nicely. Assessment:: Degenerative disc disease of lumbar spine with lumbar radiculopathy symptoms with new spinal cord stimulator system Plan:: We will follow-up with this patient in 1 week for suture removal. We will reprogram her further if needed. She is working with the [employer] community engagement representative currently. Overall she is doing very well with good stimulation in all areas of pain. [facility] History Medical History: Reports:: Asthma, Coronary Artery Disease, Diabetes Mellitus Type 2, Gastroesophageal Reflux Disease(GERD), Hyperlipidemia, Hypertension Denies:: Cancer, Diabetes Mellitus Type 1, Internal Pacemaker, MRSA, Seizures *Have you ever received a pneumonia vaccine?: Yes *Have you received a flu vaccine this season?: Yes Other Medical History: Reports: Arthritis, Thyroid Disease. Denies: Blood Transfusion Reaction Laterality Cases: Left: Arthroscopy Shoulder, Lumpectomy Other Surgeries: Yes: No Previous Surgery, Cholecystectomy, Colonoscopy, Diagnostic Lap, Hernia Repair, Hysterectomy-Total, Tubal Ligation, Other (neurostimulator implant). 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
--- NOTE | 2020-08-02 10:32 | PC.NURSE ---
called in Rx for Gabapentin 800mg QID with 2 refills to [place] pharmacy per md order.
== END ==
PROVIDERS: PCP Internal Medicine; Visit Provider Anesthesiology
DX: M51.16 Intervertebral disc disorders with radiculopathy, lumbar region (principal); Z96.82 Presence of neurostimulator
CPT/HCPCS: 99212

== ENCOUNTER → 2020-08-10 11:27 | Outpatient (POV) | payer MEDICARE, SELFPAY ==
[2020-08-10 11:42] VITALS: BP 122/85; PULSE 85; RESP 18; TEMP 36.8; O2SAT 98; BMI 39.4
--- NOTE | 2020-08-10 11:49 | P.CONS_ITS ---
[facility] Pain Management SOAP Note Subjective:: Patient is a pleasant 55-year-old white female who presents today for follow-up after [employer] spinal cord stimulator implant. Patient is doing very well. She rates her pain today 5 out of 10 however this is in her right shoulder. Patient is having no pain in her low back and legs. She is much more functional and walking well. ROS General: no recent weight change, no fever, no sleep disturbances Respiratory: no cough, no shortness of air, no recurring pulmonary infections Cardiovascular/Peripheral Vascular: No chest pain, No palpitations, no edema, no shortness of breath. Gastrointestinal: no new onset incontinence, normal bowel movements reported Genitourinary: no new onset incontinence Musculoskeletal: Right shoulder pain, back pain at times Psychiatric: normal mood/ affect Neurological: [denies new onset weakness in extremities], [denies new onset balance issues] Objective:: Physical Exam General: Alert and oriented x3, no acute distress, pleasant and cooperative, [on room air] Lungs: Resps E/U, Symmetrical chest expansion, Eyes: PERRL Musculoskeletal: Flexion and extension of lumbar spine somewhat guarded secondary to pain, deep tendon reflexes normal, strength in upper and lower extremities [5/5], antalgic gait noted Neurological: speech clear, 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 Her sutures have been removed. There is no sign symptoms of infection overall patient doing extremely well. Dr. Vincent has reviewed this note and agrees with this plan of care. This note was dictated using voice recognition software and may contain errors or omissions [facility] History I have reviewed the patient's past medical history: Yes Medical History: Reports:: Asthma, Coronary Artery Disease, Diabetes Mellitus Type 2, Gastroesophageal Reflux Disease(GERD), Hyperlipidemia, Hypertension Denies:: Cancer, Diabetes Mellitus Type 1, Internal Pacemaker, MRSA, Seizures *Have you ever received a pneumonia vaccine?: Yes *Have you received a flu vaccine this season?: Yes Other Medical History: Reports: Arthritis, Thyroid Disease. Denies: Blood Transfusion Reaction Laterality Cases: Left: Arthroscopy Shoulder, Lumpectomy Other Surgeries: Yes: No Previous Surgery, Cholecystectomy, Colonoscopy, Diagnostic Lap, Hernia Repair, Hysterectomy-Total, Tubal Ligation, Other (neurostimulator implant). 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
== END ==
PROVIDERS: Visit Provider Clinical Nurse Specialist Family Health
DX: M51.16 Intervertebral disc disorders with radiculopathy, lumbar region (principal)
CPT/HCPCS: 99212

== ENCOUNTER → 2020-09-11 10:56 | Outpatient (POV) | payer MEDICARE, SELFPAY ==
[2020-09-11 12:26] VITALS: BP 133/78; PULSE 88; RESP 18; O2SAT 98; BMI 39.4
--- NOTE | 2020-09-11 12:45 | HMH.PAINSOAP ---
[facility] Pain Management SOAP Note Subjective:: Pleasant 55-year-old white female who presents today for follow-up after neurostimulator placement. She rates her pain today 5 out of 10 after being reprogrammed by the human resources representative. She has healed well overall she is doing quite well patient is having some knee problems. She had steroid injections with no relief. She is interested in actually Synvisc injections. Patient will be sent to Dr. Obrien for her consultation in regard to this ROS General: no recent weight change, no fever, no sleep disturbances Respiratory: no cough, no shortness of air, no recurring pulmonary infections Cardiovascular/Peripheral Vascular: No chest pain, No palpitations, no edema, no shortness of breath. Gastrointestinal: no new onset incontinence, normal bowel movements reported Genitourinary: no new onset incontinence Musculoskeletal: Knee pain back pain at times Psychiatric: normal mood/ affect Neurological: [denies new onset weakness in extremities], [denies new onset balance issues] Objective:: Physical Exam General: Alert and oriented x3, no acute distress, pleasant and cooperative, [on room air] Lungs: Resps E/U, Symmetrical chest expansion, Eyes: PERRL Musculoskeletal: Flexion and extension of lumbar spine somewhat guarded secondary to pain, deep tendon reflexes normal, strength in upper and lower extremities [5/5], [abnormal gait noted] Neurological: speech clear, 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 Patient has taken tramadol in the past we talked about a small as needed ordered for breakthrough pain. We will give her tramadol 50 mg 1 p.o. daily as needed pain. Patient's been instructed to call the office if she has any issues prior to her next appointment. Dr. Vincent has reviewed this note and agrees with this plan of care. This note was dictated using voice recognition software and may contain errors or omissions [facility] History I have reviewed the patient's past medical history: Yes Medical History: Reports:: Asthma, Coronary Artery Disease, Diabetes Mellitus Type 2, Gastroesophageal Reflux Disease(GERD), Hyperlipidemia, Hypertension Denies:: Cancer, Diabetes Mellitus Type 1, Internal Pacemaker, MRSA, Seizures *Have you ever received a pneumonia vaccine?: Yes *Have you received a flu vaccine this season?: Yes Other Medical History: Reports: Arthritis, Thyroid Disease. Denies: Blood Transfusion Reaction Laterality Cases: Left: Arthroscopy Shoulder, Lumpectomy Other Surgeries: Yes: No Previous Surgery, Cholecystectomy, Colonoscopy, Diagnostic Lap, Hernia Repair, Hysterectomy-Total, Tubal Ligation, Other (neurostimulator implant). 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
== END ==
PROVIDERS: PCP Internal Medicine; Visit Provider Clinical Nurse Specialist Family Health
DX: M51.16 Intervertebral disc disorders with radiculopathy, lumbar region (principal)
CPT/HCPCS: 99212; G0463

== ENCOUNTER → 2020-10-06 11:25 | Outpatient (CLI) | payer MEDICARE, SELFPAY ==
[2020-10-06 12:43] LABS: NT Pro Brain Natriuretic Pep. 77.5 pg/mL (0-125)
== END ==
PROVIDERS: Visit Provider Internal Medicine Cardiovascular Disease
DX: R06.00 Dyspnea, unspecified; R06.09 Other forms of dyspnea; I51.7 Cardiomegaly; E11.9 Type 2 diabetes mellitus without complications; E78.5 Hyperlipidemia, unspecified; E66.01 Morbid (severe) obesity due to excess calories; Z68.41 Body mass index [BMI] 40.0-44.9, adult; Z79.4 Long term (current) use of insulin
CPT/HCPCS: 36415; 83880

== ENCOUNTER → 2020-11-14 13:26 | Outpatient (CLI) | payer MEDICARE, MEDICAID, SELFPAY ==
--- NOTE | 2020-11-14 13:32 | XR_ITS ---
PROCEDURE: XR KNEE LT 4V CLINICAL INDICATION: left knee pain; weightbearing COMPARISON: No exams were available for comparison FINDINGS: No fracture or dislocation. No lytic or blastic change. There is normal mineralization. Mild osteoarthritic changes are present involving all 3 compartments greater in the medial compartment. Small osteophytes are present. Other findings:None. IMPRESSION: Mild osteoarthritic change Dictated by: Romairo Jarvis MD 11/14/2020 14:59 Romario Jarvis MD in [place] 11/14/2020 14:59
--- NOTE | 2020-11-14 13:32 | XR_ITS ---
PROCEDURE: XR HIP RT 2-3V W/PELVIS CLINICAL INDICATION: right hip pain Bilateral hip pain COMPARISON: CR [id number] HIP LT 2-3V W/PELVIS IF PERFOR from 08/17/2017 CR XR HIP LT 2-3V W/PELVIS from 11/14/2020 FINDINGS: There are minimal osteoarthritic changes involving right hip with [id number] osteoarthritic changes of the left hip. No fracture or dislocation. No lytic or blastic change. An epidural stimulator device is present with the power pack overlying the right iliac region. IMPRESSION: Mild osteoarthritis of the right hip Moderate osteoarthritic change of the left hip which have slightly progressed compared to the previous exam. Dictated by: Romario Jarvis MD 11/14/2020 14:52 Romario Jarvis MD in [place] 11/14/2020 14:52
--- NOTE | 2020-11-14 13:32 | XR_ITS ---
PROCEDURE: XR HIP RT 2-3V W/PELVIS CLINICAL INDICATION: right hip pain Bilateral hip pain COMPARISON: CR [id number] HIP LT 2-3V W/PELVIS IF PERFOR from 08/17/2017 CR XR HIP LT 2-3V W/PELVIS from 11/14/2020 FINDINGS: There are minimal osteoarthritic changes involving right hip with [id number] osteoarthritic changes of the left hip. No fracture or dislocation. No lytic or blastic change. An epidural stimulator device is present with the power pack overlying the right iliac region. IMPRESSION: Mild osteoarthritis of the right hip Moderate osteoarthritic change of the left hip which have slightly progressed compared to the previous exam. Dictated by: Romario Jarvis MD 11/14/2020 14:52 Romario Jarvis MD in [place] 11/14/2020 14:52
--- NOTE | 2020-11-14 13:32 | XR_ITS ---
PROCEDURE: XR KNEE RT 4V CLINICAL INDICATION: right knee pain; weightbearing COMPARISON: No exams were available for comparison FINDINGS: No fracture or dislocation. No lytic or blastic change. There is normal mineralization. There are mild osteoarthritic changes involving all 3 compartments. Small suprapatellar effusion is present. Osteoarthritis is slightly worse in the lateral compartment compared to the remaining the. Other findings:None. IMPRESSION: Tricompartmental osteoarthritic change with small knee joint effusion Dictated by: Romario Jarvis MD 11/14/2020 14:58 Romario Jarvis MD in [place] 11/14/2020 14:58
== END ==
PROVIDERS: PCP Internal Medicine; Visit Provider Orthopaedic Surgery
DX: M25.552 Pain in left hip (principal); M25.562 Pain in left knee; M25.561 Pain in right knee; M25.551 Pain in right hip
CPT/HCPCS: 73502; 73564

== ENCOUNTER → 2020-12-11 09:58 | Outpatient (POV) | payer MEDICARE, MEDICAID, SELFPAY ==
[2020-12-11 10:51] VITALS: BP 140/78; PULSE 74; RESP 18; O2SAT 98; BMI 39.6
--- NOTE | 2020-12-11 10:56 | HMH.PAINSOAP ---
[facility] Pain Management SOAP Note Subjective:: Patient is a pleasant 55-year-old white female who presents today for follow-up. Patient doing well with her neurostimulator. Patient is currently working with orthopedics in regards to her left hip pain. Patient is interested in a potential second opinion. We discussed Dr. Escamilla in [place] she is agreeable. Patient rates her pain today 6 out of 10. She is currently on gabapentin and tramadol. Patient's Berto was run however due to a Berto issue it did not come up appropriately. Medication was checked with pharmacy. Patient is due tramadol, low back, gabapentin refills today. ROS General: no recent weight change, no fever, no sleep disturbances Respiratory: no cough, no shortness of air, no recurring pulmonary infections Cardiovascular/Peripheral Vascular: No chest pain, No palpitations, no edema, no shortness of breath. Gastrointestinal: no new onset incontinence, normal bowel movements reported Genitourinary: no new onset incontinence Musculoskeletal: Back pain, leg pain, hip pain Psychiatric: normal mood/ affect Neurological: [denies new onset weakness in extremities], [denies new onset balance issues] Objective:: Physical Exam General: Alert and oriented x3, no acute distress, pleasant and cooperative, [on room air] Lungs: Resps E/U, Symmetrical chest expansion, Eyes: PERRL Musculoskeletal: Flexion and extension of lumbar spine somewhat guarded secondary to pain, deep tendon reflexes normal, strength in upper and lower extremities [5/5], [abnormal gait noted] Neurological: speech clear, maturity checker equal, no gross sensory deficits Assessment:: Degenerative disc disease lumbar spine lumbar radiculopathy low back pain, left hip pain Plan:: We will schedule the patient for a second opinion with Dr. Escamilla. We will also continue her gabapentin 800 mg 1 p.o. 4 times daily, tramadol 50 mg 1 p.o. twice daily and Mobic 15 mg 1 p.o. daily. We will follow up with her in 3 months reassess her symptoms at that time she has been instructed to call the office if she has any issues prior to her next appointment. Dr. Vincent has reviewed this note and agrees with this plan of care. This note was dictated using voice recognition software and may contain errors or omissions [facility] History I have reviewed the patient's past medical history: Yes Medical History: Reports:: Asthma, Coronary Artery Disease, Diabetes Mellitus Type 2, Gastroesophageal Reflux Disease(GERD), Hyperlipidemia, Hypertension Denies:: Cancer, Diabetes Mellitus Type 1, Internal Pacemaker, MRSA, Seizures *Have you ever received a pneumonia vaccine?: Yes *Have you received a flu vaccine this season?: Yes Other Medical History: Reports: Arthritis, Thyroid Disease. Denies: Blood Transfusion Reaction Laterality Cases: Left: Arthroscopy Shoulder, Lumpectomy Other Surgeries: Yes: No Previous Surgery, Cholecystectomy, Colonoscopy, Dilation and Curettage, Diagnostic Lap, Hernia Repair, Hysterectomy-Total, Tubal Ligation, Other (neurostimulator implant). 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
== END ==
PROVIDERS: PCP Internal Medicine; Visit Provider Clinical Nurse Specialist Family Health
DX: M51.16 Intervertebral disc disorders with radiculopathy, lumbar region (principal); M25.552 Pain in left hip
CPT/HCPCS: 99212; G0463

== ENCOUNTER 2021-04-06 11:39 | Day surgery (SDC) | payer MEDICARE, SELFPAY ==
[2021-04-06 12:03] VITALS: BP 170/70; PULSE 74; RESP 20; TEMP 36.7; O2SAT 97; BMI 38.3
--- NOTE | 2021-04-06 12:39 | P.PCN_ITS ---
- Procedure Date: 04/06/21 Time: 12:39 Anesthesiologist:: Celestina Rosas MD Complications:: None Pre-procedure Diagnosis:: Chronic right knee pain, right knee osteoarthritis Post-procedure Diagnosis:: Same Indications for Procedure:: This is a very pleasant 55-year-old white female who presents today with chronic right-sided knee pain related to the above diagnosis. She is trialed and failed conservative treatment including oral pain medication and home stretching program for greater than 6 weeks. She has previously undergone a right intra- articular corticosteroid knee injection and notes about 80% pain relief for 2 to 3 months. She is requesting repeat injection today. Today is for the patient to undergo right-sided intra-articular steroid injection to the right knee Procedure Details:: Informed consent was obtained. Risks and benefits of the procedure were explained to the patient. Patient was taken back to the procedure room. Right and left knee was prepped using ChloraPrep. A 25 gauge needle was used in a lateral to medial trajectory and the needle was advanced until the intra- articular knee joint was approached. An injectate solution of 10 mL of bupivacaine 0.25% and Depo-Medrol 40 mg was injected into the right knee. Patient tolerated the procedure well with no complications. Plan and Disposition:: Follow-up with this patient in 2 weeks. Will reevaluate pain symptoms at that time. I also refilled her tramadol 50 mg twice daily as needed for pain #60 for 1 month supply and gabapentin 800mg 4 times a day #120 for a 1 month supply. Of note, she has chronic right-sided hip pain and reports she has an upcoming appointment with Dr. Escamilla in [place] for a second opinion for this. She states that she had a bad migraine and had to postpone her last appointment but has since rescheduled.
[2021-04-06 12:43] VITALS: BP 170/70; PULSE 74; RESP 20; TEMP 36.7; O2SAT 97; BMI 38.3
[2021-04-06 12:56] VITALS: BP 159/69; PULSE 91; RESP 18; O2SAT 97
[2021-04-06 12:57] VITALS: BP 159/69; PULSE 90; RESP 18; O2SAT 97
[2021-04-06 13:05] VITALS: BP 183/60; PULSE 61; RESP 20; O2SAT 97
== END 2021-04-06 13:06 | disposition home or self-care (01) ==
PROVIDERS: PCP Internal Medicine; Visit Provider Anesthesiology Pain Medicine
DX: M17.11 Unilateral primary osteoarthritis, right knee (principal); I10 Essential (primary) hypertension; I25.10 Atherosclerotic heart disease of native coronary artery without angina pectoris; E78.5 Hyperlipidemia, unspecified; Z88.8 Allergy status to other drugs, medicaments and biological substances
CPT/HCPCS: 20610; 99212; G0463; J1040

== ENCOUNTER 2021-05-25 09:15 | Day surgery (SDC) | payer MEDICARE, SELFPAY ==
[2021-05-25 09:37] VITALS: BP 130/76; PULSE 70; RESP 18; TEMP 36.6; O2SAT 99; BMI 39.1
[2021-05-25 10:05] VITALS: BP 139/65; PULSE 66; RESP 18; O2SAT 98
[2021-05-25 10:06] VITALS: BP 139/65; PULSE 66; RESP 18; O2SAT 99
--- NOTE | 2021-05-25 10:11 | HMH.PMPROC ---
- Procedure Date: 05/25/21 Time: 10:11 Anesthesiologist:: Virgilio Vincent MD Complications:: None Pre-procedure Diagnosis:: Bilateral knee pain with degenerative osteoarthritis Post-procedure Diagnosis:: Same Indications for Procedure:: Patient is a pleasant 56-year-old white female who we are treating for bilateral knee pain with degenerative osteoarthritis. She has done well with injections in the past. We will do a repeat bilateral intra-articular knee injection today to help her with her pain symptoms. She may also need a refill on her medications. We will follow-up with her pharmacy and refill these medicines when appropriate. Procedure Details:: Bilateral intra-articular knee injection Informed consent was obtained the risk and benefits of the procedure were explained to the patient. Patient was taken the procedure room. Both knees were prepped using ChloraPrep. 25-gauge needle was used first medially then laterally to inject 10 mL bupivacaine 0.25% and Depo-Medrol 40 mg into each knee. Patient tolerated procedure well with no complications. Plan and Disposition:: Follow-up with her in 2 weeks. Will reevaluate symptoms at that time. We will refill her medications when appropriate.
[2021-05-25 10:16] VITALS: BP 145/73; PULSE 66; RESP 20; O2SAT 99
== END 2021-05-25 10:17 | disposition home or self-care (01) ==
LOC: SC.PAIN 09:35
PROVIDERS: PCP Internal Medicine; Visit Provider Anesthesiology
DX: M17.0 Bilateral primary osteoarthritis of knee (principal); I25.10 Atherosclerotic heart disease of native coronary artery without angina pectoris; K21.9 Gastro-esophageal reflux disease without esophagitis; Z87.442 Personal history of urinary calculi; F41.9 Anxiety disorder, unspecified; F32.9 Major depressive disorder, single episode, unspecified; G43.909 Migraine, unspecified, not intractable, without status migrainosus; B19.20 Unspecified viral hepatitis C without hepatic coma; Z88.8 Allergy status to other drugs, medicaments and biological substances
CPT/HCPCS: 20610; J1040

== ENCOUNTER → 2021-06-19 11:03 | Outpatient (POV) | payer MEDICARE, SELFPAY ==
[2021-06-19 11:25] VITALS: BP 135/93; PULSE 88; RESP 18; O2SAT 98; BMI 39.1
--- NOTE | 2021-06-19 12:16 | HMH.PAINSOAP ---
[facility] Pain Management SOAP Note Subjective:: Patient is a 56-year-old white female who presents today for follow-up after bilateral intra-articular knee injections. Patient recently had injections to bilateral knees on 05/25/2021. She reports she got significant relief up to 80% relief following the injections to her knees. She is continuing to have significant pain in her bilateral lower extremities. She is complaining of left lateral thigh pain. She says that she is seeing an orthopedi provider who has advised her she needs to undergo left hip replacement, but she has deferred at this time. She feels that the pain is coming from her leg rather than her hip. She states that her primary care provider did give her a cortisone injection in the office and says that she got significant relief approximately 80% relief for a couple of months with the injection. She does have tenderness to palpation to her left lateral thigh area. She would like to undergo injective therapy to the area, however she is scheduled to undergo cataract surgery in 1 week. 2 weeks following her initial surgery she will undergo second surgery for the other affected eye. She will need to postpone injective therapy until she has completed her surgeries. Patient rates her pain a 6 out of 10. Review of Systems General: No recent weight changes, no fever, no sleep disturbances Respiratory: No cough, no shortness of air, no recurring pulmonary infections Cardiovascular/peripheral vascular: No chest pain, no palpitations, no edema, no shortness of breath Gastrointestinal: No new onset incontinence, normal bowel movements reported Genitourinary: No new onset incontinence Musculoskeletal: [] Left lateral thigh pain Psychiatric: [Normal mood/affect] Neurological: [Denies weakness in extremities], [denies balance issues] Objective:: Physical exam General: Alert and oriented x3, no acute distress, pleasant and cooperative Lungs: Respirations even and unlabored, symmetrical chest expansion Eyes: PERRL Musculoskeletal: Flexion and extension/palpation of left leg somewhat guarded secondary to pain, [antalgic gait noted] Neurological: Speech clear, no gross sensory deficit Assessment:: Left lateral thigh pain, myofascial pain Plan:: The patient is having left lateral thigh pain. She got significant relief with her bilateral intra-articular knee injections. She is tender to palpation to the left lateral thigh and does have notable trigger points. We will schedule her for left lateral thigh trigger point injections. We will postpone injections, however, until she completes her surgeries for cataracts. We will order the patient compounding cream to apply topically to the area until she is able to undergo injections. We will plan to follow-up with her in 1 month. At that time we will plan to schedule the patient trigger point injections. Patient has been advised of the side effects regarding the compounding cream. Patient has been instructed to contact the clinic with any concerns before the next appointment. Dr. Vincent has reviewed this note and agrees with this plan of care. This note was dictated using voice recognition software and make contain errors or omissions. [facility] History I have reviewed the patient's past medical history: Yes Medical History: Reports:: Asthma, Coronary Artery Disease, Diabetes Mellitus Type 2, Gastroesophageal Reflux Disease(GERD), Hyperlipidemia, Hypertension Denies:: Cancer, Diabetes Mellitus Type 1, Internal Pacemaker, MRSA, Seizures *Have you ever received a pneumonia vaccine?: Yes *Have you received a flu vaccine this season?: No Other Medical History: Reports: Arthritis, Thyroid Disease. Denies: Blood Transfusion Reaction Laterality Cases: Left: Arthroscopy Shoulder, Lumpectomy Other Surgeries: Yes: No Previous Surgery, Cardiac Catheterization, Cholecystectomy, Colonoscopy, Dilation and Curettage, Diagnostic Lap, Hernia Repair, Hys
== END ==
PROVIDERS: Visit Provider Clinical Nurse Specialist Family Health
DX: M79.652 Pain in left thigh; M79.18 Myalgia, other site
CPT/HCPCS: 99212; G0463

== ENCOUNTER → 2021-08-13 11:11 | Outpatient (POV) | payer MEDICARE, SELFPAY ==
[2021-08-13 11:28] VITALS: BP 119/78; PULSE 90; RESP 18; O2SAT 96; BMI 38.9
--- NOTE | 2021-08-13 11:31 | HMH.PAINSOAP ---
[facility] Pain Management SOAP Note Subjective:: Patient is a 56-year-old white female who presents today for follow-up. The patient was previously seen in our clinic on 06/19/2021. She reports she had a fall approximately 4 to 5 weeks ago. She did go to [facility] ER for complaints of worsening right shoulder pain as well as right knee pain. She does report she had x-rays of her right shoulder which was unremarkable. Since then, she has continued to have significant pain to her right shoulder and right knee. She has limited range of motion to her right knee and right shoulder due to pain. She says that she fell on concrete. She rates her pain a 10 out of 10 today. She did contact the clinic for oral medications, but was advised she would need to return to the clinic for further evaluation. We did give the patient gabapentin as well as tramadol in the clinic. She does need refills on medications as well. She says that the pain is significant and affecting her quality of life throughout the day. Review of Systems General: No recent weight changes, no fever, no sleep disturbances Respiratory: No cough, no shortness of air, no recurring pulmonary infections Cardiovascular/peripheral vascular: No chest pain, no palpitations, no edema, no shortness of breath Gastrointestinal: No new onset incontinence, normal bowel movements reported Genitourinary: No new onset incontinence Musculoskeletal: Right shoulder pain, right knee pain Psychiatric: [Normal mood/affect] Neurological: Weakness right upper extremity, weakness right lower extremity Objective:: Physical exam General: Alert and oriented x3, no acute distress, pleasant and cooperative Lungs: Respirations even and unlabored, symmetrical chest expansion Eyes: PERRL Musculoskeletal: Flexion and extension of right upper extremity and right lower extremity somewhat guarded secondary to pain, [antalgic gait noted] Neurological: Speech clear, no gross sensory deficit Assessment:: Right shoulder pain, right knee pain Plan:: Patient has continued to have significant pain to her right shoulder since the fall as well as her right knee. She does have chronic knee pain but reports her pain to be different in nature in comparison to her chronic pain. We will schedule the patient for a x-ray right knee and MRI right shoulder. She has requested injective therapy to the area. The patient is diabetic. We will perform a right intra-articular shoulder injection and right intra-articular knee injection. We will see if this gives the patient relief while awaiting imaging. Patient is diabetic. She is not on any anticoagulation therapy. Risks and benefits of the procedure have been explained to the patient. Patient would like to proceed with the procedure. Possible side effects of corticosteroids have been discussed with the patient. Risks and benefits of the procedure have been explained to the patient. Patient would like to proceed with the procedure. Patient has been instructed to contact the clinic with any concerns before the next appointment. Dr. Vincent has reviewed this note and agrees with this plan of care. This note was dictated using voice recognition software and make contain errors or omissions. [facility] History I have reviewed the patient's past medical history: Yes Medical History: Reports:: Asthma, Coronary Artery Disease, Diabetes Mellitus Type 2, Gastroesophageal Reflux Disease(GERD), Hyperlipidemia, Hypertension Denies:: Cancer, Diabetes Mellitus Type 1, Internal Pacemaker, MRSA, Seizures *Have you ever received a pneumonia vaccine?: No *Have you received a flu vaccine this season?: No Other Medical History: Reports: Arthritis, Thyroid Disease. Denies: Blood Transfusion Reaction Laterality Cases: Left: Arthroscopy Shoulder, Lumpectomy Other Surgeries: Yes: No Previous Surgery, Cardiac Catheterization, Cholecystectomy, Colonoscopy, Dilation and Curettage, Diagnostic Lap, H
== END ==
PROVIDERS: Visit Provider Clinical Nurse Specialist Family Health
DX: M25.511 Pain in right shoulder (principal); M25.561 Pain in right knee; W19.XXXA Unspecified fall, initial encounter
CPT/HCPCS: 99212; G0463

== ENCOUNTER → 2021-08-16 13:54 | Day surgery (SDC) | payer MEDICARE, SELFPAY ==
--- NOTE | 2021-08-16 14:11 | P.PCN_ITS ---
- Procedure Date: 08/16/21 Time: 14:12 Anesthesiologist:: Carolina Irizarry APRN Complications:: None Pre-procedure Diagnosis:: Osteoarthritis right shoulder, osteoarthritis right knee, right knee pain, right shoulder pain Post-procedure Diagnosis:: Same Indications for Procedure:: Patient is a 56-year-old white female who presents today for significant pain to right shoulder and right knee. She did have a fall to her right knee and also landing on right shoulder. She does have chronic knee pain but reports the pain is somewhat different in nature comparison to chronic pain. She did have an x- ray of right knee and MRI ordered of right shoulder. We will perform a right intra-articular knee injection and a right shoulder injection to see if she gets relief. Patient has been advised of the risks and side effects of corticosteroids. She is diabetic. She would like to proceed with the procedures today. Physical exam General: Alert and oriented x3, no acute distress, pleasant and cooperative Lungs: Respirations even and unlabored, symmetrical chest expansion Eyes: PERRL Musculoskeletal: Flexion and extension of right knee somewhat guarded secondary to pain, [antalgic gait noted], limited mobility of right shoulder and arm Neurological: Speech clear, no gross sensory deficit Procedure Details:: Procedure was explained to the patient in detail, all questions were answered. Informed consent was obtained. The patient was positioned, the shoulder was draped appropriately. Anatomical landmarks were identified. The skin was prep ped with ChloraPrep in the usual fashion. Using strict sterile technique, a 25- gauge 1-1/2 inch needle was inserted using the posterior approach into the [ ] shoulder joint space. After negative aspiration, 3 mL's of 0.25% Marcaine along with 1 mL's of Depo-Medrol 40 mg/mL was injected into the joint space. The needle was removed and a sterile bandage was applied. Patient noted [70%] improvement after the procedure. Patient tolerated the procedure well. We then proceeded to the right knee..The appropriate anatomic area, right knee was widely prepped with ChloraPrep and draped in a sterile fashion. Noninvasive monitoring per routine anesthesia protocol was placed. Bilateral joints were injected with 3 mL of 0.25% bupivacaine, and 1 mL of Depakote-Medrol 40 mg. The patient tolerated the procedure with no complications. A sterile dressing was based over the puncture sites. Plan and Disposition:: Patient has been advised to monitor blood glucose level closely due to corticosteroids. We will follow up with her in 2 weeks for further evaluation. Patient has been instructed to contact the clinic with any concerns before the next appointment. Dr. Vincent has reviewed this note and agrees with this plan of care. This note was dictated using voice recognition software and make contain errors or omissions.
[2021-08-16 14:48] VITALS: BP 132/80; PULSE 85; RESP 20; O2SAT 98
== END ==
PROVIDERS: PCP Internal Medicine; Visit Provider Clinical Nurse Specialist Family Health
DX: M19.011 Primary osteoarthritis, right shoulder; M17.11 Unilateral primary osteoarthritis, right knee; I10 Essential (primary) hypertension; E78.5 Hyperlipidemia, unspecified; E11.9 Type 2 diabetes mellitus without complications; I25.10 Atherosclerotic heart disease of native coronary artery without angina pectoris; Z79.890 Hormone replacement therapy; Z88.8 Allergy status to other drugs, medicaments and biological substances
CPT/HCPCS: 20610; J1040

== ENCOUNTER → 2021-11-08 08:38 | Outpatient (POV) | payer MEDICARE, MEDICAID, SELFPAY ==
[2021-11-08 08:55] VITALS: BP 106/67; PULSE 81; RESP 20; TEMP 36.1; O2SAT 98; BMI 38.3
--- NOTE | 2021-11-08 09:45 | HMH.PAINSOAP ---
[facility] Pain Management SOAP Note Subjective:: Patient is a pleasant 56-year-old female who presents today for follow-up. When we last saw this patient in August, we did a right shoulder and right knee intra-articular injections. She says that the injections helped for couple of weeks. Today, she says that her right knee has been intermittently hurting and swelling. She does not know what is causing the swelling but it happens throughout the day. Patient says that she was given information to see ivette Tan, in [place]. She has not made an appointment with them yet. Patient has not had a chance to get a CT of her right shoulder and an x-ray of her right knee. We will order the x-ray of her right knee again today. For pain management, patient is taking tramadol 50 mg twice a day, meloxicam 15 mg daily, gabapentin 800 mg 4 times a day. Patient says that these medications are helping some of her pain but they are not helping her knee pain. Patient also has a [employer] stimulator. She says that she is only getting stimulation on her left leg but not on her right leg. She will reach out with the [employer] technical services representative to help her with some reprogramming. She rates her pain today as 10 out of 10. [facility] #[id number] with an active morphine equivalent of 10 has been reviewed and appropriate. General: No recent weight changes, no fever, no sleep disturbances Respiratory: No cough, no shortness of air, no recurring pulmonary infections Cardiovascular/peripheral vascular: No chest pain, no palpitations, no edema, no shortness of breath Gastrointestinal: No new onset incontinence, normal bowel movements reported Genitourinary: No new onset incontinence Musculoskeletal: Right shoulder pain, right knee pain Psychiatric: [Normal mood/affect] Neurological: [Denies weakness in extremities], [denies balance issues] Objective:: General: Alert and oriented x3, no acute distress, pleasant and cooperative, [on room air] Lungs: Respirations even and unlabored, symmetrical chest expansion Eyes: PERRL Musculoskeletal: Flexion and extension of lumbar [spine] somewhat guarded secondary to pain; right knee is tender to palpation and slightly bigger than her left knee due to swelling. Neurological: Speech clear, no gross sensory deficit Assessment:: Right knee osteoarthritis Right shoulder pain Degenerative disc disease of the lumbar spine with lumbar radiculopathy symptoms Plan:: Patient is scheduled to get a CT of her right shoulder and an x-ray of her right knee. Patient says that she has not a chance to get these done. We will order another weighted right knee x-ray. We will also schedule a right genicular nerve block. Risks and benefits of the procedure have been explained to the patient. Patient would like to proceed with the procedure. I will start the patient on Celebrex 100 mg twice a day. Patient is to stop taking her meloxicam. I will increase her tramadol to 3 times a day. I also discussed with the patient that she needs to set up the appointment with ivette Tan [place]. She will also reach out with a [employer] technical services representative to help her with some reprogramming on her stimulator. [facility] History Medical History: Reports:: Asthma, Coronary Artery Disease, Diabetes Mellitus Type 2, Gastroesophageal Reflux Disease(GERD), Hyperlipidemia, Hypertension Denies:: Cancer, Diabetes Mellitus Type 1, Internal Pacemaker, MRSA, Seizures *Have you ever received a pneumonia vaccine?: No *Have you received a flu vaccine this season?: No Other Medical History: Reports: Arthritis, Thyroid Disease. Denies: Blood Transfusion Reaction Laterality Cases: Left: Arthroscopy Shoulder, Lumpectomy Other Surgeries: Yes: No Previous Surgery, Cardiac Catheterization, Cholecystectomy, Colonoscopy, Dilation and Curettage, Diagnostic Lap, Hernia Repair, Hysterectomy-Total, Hysterectomy-Partial, Tubal Ligation, Other (ex
== END ==
PROVIDERS: Visit Provider Student in an Organized Health Care Education/Training Program
DX: M51.16 Intervertebral disc disorders with radiculopathy, lumbar region (principal); M17.11 Unilateral primary osteoarthritis, right knee; M25.511 Pain in right shoulder
CPT/HCPCS: 73564; 99212; G0463

== ENCOUNTER → 2021-11-08 09:26 | Outpatient (CLI) | payer MEDICARE, MEDICAID, SELFPAY ==
--- NOTE | 2021-11-08 09:39 | XR_ITS ---
FINAL REPORT CLINICAL HISTORY: RT KNEE PAIN W/ SWELLING COMPARISON: November 14, 2020 FINDINGS: RIGHT KNEE: Four weight-bearing views of the right knee were obtained. There is no acute fracture or dislocation. There are degenerative changes ranging from mild to severe. There is severe lateral compartment narrowing that appears worse since the prior exam. Valgus angulation is noted at the knee, which is somewhat worse. There is a small joint effusion. IMPRESSION: Worsening, severe lateral compartment degenerative change and small joint effusion. Reviewed, Interpreted and Dictated by Forrest Rhodes III, MD Transcribed by Carolina Carlos Authenticated by Forrest Rhodes III, MD on 11/08/2021 11:19:[address] [facility]
== END ==
PROVIDERS: PCP Internal Medicine; Visit Provider Student in an Organized Health Care Education/Training Program
DX: M25.561 Pain in right knee (principal)
CPT/HCPCS: 73564

== ENCOUNTER 2021-11-16 08:46 | Day surgery (SDC) | payer MEDICARE, MEDICAID, SELFPAY ==
[2021-11-16 08:57] VITALS: BP 106/77; BP 139/77; BP 148/78; PULSE 82; PULSE 86; PULSE 88; RESP 20; TEMP 36.4; O2SAT 100; O2SAT 98; O2SAT 99; BMI 38.3
--- NOTE | 2021-11-16 09:57 | P.PCN_ITS ---
- Procedure Date: 11/16/21 Time: 09:57 Anesthesiologist:: Virgilio Vincent MD Complications:: None Pre-procedure Diagnosis:: Right knee pain with degenerative osteoarthritis Post-procedure Diagnosis:: Same Indications for Procedure:: This patient is a pleasant 56-year-old white female who we are treating for degenerative arthritis of the right knee with increasing right knee pain. She has had intra-articular injections which have not given her much relief. We will do a right knee genicular nerve block today to see if this helps with her pain symptoms. She also has low back pain and lumbar radicular symptoms. She does have a [employer] spinal cord stimulator system in place. She is getting reprogramming today to get more stimulation on her right leg. Procedure Details:: Right knee genicular block Informed consent was obtained and the risk and benefits of the procedure was explained to the patient. The patient was taken to the procedure room. The left knee was prepped using ChloraPrep. I placed 22-gauge needles into the area of the right superior medial genicular nerve, right superior lateral genicular nerve and right inferior medial genicular nerve. Needle placement was confirmed in AP and lateral views with dye. We then injected bupivacaine 0.25% 3 mL's and Depo-Medrol 25 mg into each area of the right superior medial genicular nerve, right superior lateral genicular nerve and right inferior medial genicular nerve. Patient tolerated the procedure well with no complications. Plan and Disposition:: We will follow-up with her in 2 weeks. Will reevaluate symptoms at that time. She is getting reprogramming of her stimulator today. We did check the leads under fluoroscopy and the leads seem to be in proper position.
[2021-11-16 10:00] VITALS: BP 155/99; PULSE 83; RESP 20; O2SAT 95
== END 2021-11-16 10:00 | disposition home or self-care (01) ==
LOC: SC.PAINP 08:49
PROVIDERS: PCP Internal Medicine; Visit Provider Anesthesiology
DX: M17.11 Unilateral primary osteoarthritis, right knee (principal); J45.909 Unspecified asthma, uncomplicated; I25.10 Atherosclerotic heart disease of native coronary artery without angina pectoris; E11.9 Type 2 diabetes mellitus without complications; K21.9 Gastro-esophageal reflux disease without esophagitis; E78.5 Hyperlipidemia, unspecified; I10 Essential (primary) hypertension; M19.90 Unspecified osteoarthritis, unspecified site; E07.9 Disorder of thyroid, unspecified; Z88.8 Allergy status to other drugs, medicaments and biological substances
CPT/HCPCS: 64454; J1040; Q9966

== ENCOUNTER → 2021-11-30 10:01 | Outpatient (POV) | payer MEDICARE, MEDICAID, SELFPAY ==
[2021-11-30 10:29] VITALS: BP 176/83; PULSE 80; RESP 20; TEMP 36.4; O2SAT 95; BMI 37.5
--- NOTE | 2021-11-30 12:33 | HMH.PAINSOAP ---
[facility] Pain Management SOAP Note Subjective:: Patient is a pleasant 56-year-old white female who we have been treating for degenerative arthritis of the right knee with increasing right knee pain. She is status post right knee genicular nerve block which did not give her any relief of her pain symptoms. She did say that Mobic has helped her significantly. She has been switched from Mobic to Celebrex. She is not getting any relief with Celebrex. We will start her Mobic 15 mg once a day. We will send this in today. Also she is having some pain over her right shoulder we will order an MRI of the right shoulder to discern pathology. Objective:: Alert and oriented x3 no acute distress. She does have an antalgic gait. Motor strength of the lower extremities is 5/5. There is no gross sensory deficit. Decreased range of motion of her right shoulder. Assessment:: Degenerative disc disease of lumbar spine with lumbar radiculopathy symptoms. Chronic right knee pain with degenerative osteoarthritis. Chronic right shoulder pain. Plan:: This patient is doing very well with her spinal cord stimulator. She was reprogrammed at her last visit. She did not get any relief from the genicular nerve block. We will switch her from Celebrex to Mobic 15 mg once a day to help with her knee pain. This is helped in the past. She is also having some increasing right shoulder pain. We will order an MRI of the right shoulder and follow-up with this results at her next clinic visit. [facility] History Medical History: Reports:: Asthma, Coronary Artery Disease, Diabetes Mellitus Type 2, Gastroesophageal Reflux Disease(GERD), Hyperlipidemia, Hypertension Denies:: Cancer, Diabetes Mellitus Type 1, Internal Pacemaker, MRSA, Seizures *Have you ever received a pneumonia vaccine?: Yes *Have you received a flu vaccine this season?: No Other Medical History: Reports: Arthritis, Thyroid Disease. Denies: Blood Transfusion Reaction Laterality Cases: Left: Arthroscopy Shoulder, Lumpectomy Other Surgeries: Yes: No Previous Surgery, Cardiac Catheterization, Cholecystectomy, Colonoscopy, Dilation and Curettage, Diagnostic Lap, Hernia Repair, Hysterectomy-Total, Hysterectomy-Partial, Tubal Ligation, Other (exploratory sx,). 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
== END ==
PROVIDERS: PCP Internal Medicine; Visit Provider Anesthesiology
DX: M51.16 Intervertebral disc disorders with radiculopathy, lumbar region (principal); M17.11 Unilateral primary osteoarthritis, right knee; M25.511 Pain in right shoulder; G89.29 Other chronic pain
CPT/HCPCS: 99212; G0463

== ENCOUNTER → 2021-12-14 08:58 | Outpatient (CLI) | payer MEDICARE, MEDICAID, SELFPAY ==
--- NOTE | 2021-12-14 09:04 | CT_ITS ---
FINAL REPORT CLINICAL HISTORY: RIGHT SHOULDER PAIN FINDINGS: Technique: Axial images through the right shoulder were performed by computed tomography. Sagittal and coronal reconstruction images were performed. This study was performed with techniques to keep radiation doses as low as reasonably achievable (ALARA). Individualized dose reduction techniques using automated exposure control or adjustment of mA and/or kV according to the patient's size were employed. No fracture is identified. No dislocation identified. There are moderate hypertrophic changes at the AC joint. There are osteophytes along the superior and inferior margins of the AC joint. There is a small soft tissue density superior to the right AC joint measuring 1.0 cm the could represent a synovial cyst. There are minimal hypertrophic changes at the glenohumeral joint. IMPRESSION: Osteoarthritis of the AC joint with questionable small synovial cyst along the superior margin. Mild osteoarthritis of the glenohumeral joint. Reviewed, Interpreted and Dictated by Natan Zamorano MD Transcribed by Chay Ashford Authenticated by Natan Zamorano MD on 12/14/2021 11:17:10 AM [facility]
== END ==
PROVIDERS: PCP Internal Medicine; Visit Provider Anesthesiology
DX: M25.511 Pain in right shoulder (principal)
CPT/HCPCS: 73200

== ENCOUNTER → 2021-12-21 10:02 | Outpatient (POV) | payer MEDICARE, MEDICAID, SELFPAY ==
[2021-12-21 10:04] VITALS: BP 140/75; PULSE 77; RESP 20; TEMP 36; O2SAT 98; BMI 38.8
--- NOTE | 2021-12-21 10:20 | HMH.PAINSOAP ---
[facility] Pain Management SOAP Note Subjective:: Patient is a pleasant 56 female that comes to our clinic today for follow-up visit regarding right shoulder pain. Patient had fallen some weeks ago and had right shoulder pain. She returns today to discuss her CT scan of the right shoulder. CT scan of the right shoulder shows also osteoarthritis of the AC joint with a synovial cyst. Otherwise mild osteoarthritis in the glenohumeral joint. Patient has decreased range of motion. Some pain in the right shoulder. I discussed in detail with the patient regarding the right shoulder and treatment options. I gave her the option to see the orthopedic surgeon regarding the right shoulder. However, she is electing for a right shoulder cortisone injection. We can do this for her in the procedure clinic. She will be seeing Dr. Escamilla in [place] regarding her right knee osteoarthritis. Objective:: Osteoarthritis right shoulder. Assessment:: Patient is awake alert [place] x3. In no acute distress. Mildly obese. Decreased range of motion in the right shoulder due to pain. Gait is antalgic. Motor strength upper and lower extremities normal. There is no gross sensory deficit. Plan:: We will schedule the patient for a right intra-articular shoulder injection. [facility] History Medical History: Reports:: Asthma, Coronary Artery Disease, Diabetes Mellitus Type 2, Gastroesophageal Reflux Disease(GERD), Hyperlipidemia, Hypertension Denies:: Cancer, Diabetes Mellitus Type 1, Internal Pacemaker, MRSA, Seizures *Have you ever received a pneumonia vaccine?: Yes *Have you received a flu vaccine this season?: No Other Medical History: Reports: Arthritis, Thyroid Disease. Denies: Blood Transfusion Reaction Laterality Cases: Left: Arthroscopy Shoulder, Lumpectomy Other Surgeries: Yes: No Previous Surgery, Cardiac Catheterization, Cholecystectomy, Colonoscopy, Dilation and Curettage, Diagnostic Lap, Hernia Repair, Hysterectomy-Total, Hysterectomy-Partial, Tubal Ligation, Other (exploratory sx,). 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
== END ==
PROVIDERS: Visit Provider Nurse Anesthetist, Certified Registered
DX: M19.011 Primary osteoarthritis, right shoulder (principal)
CPT/HCPCS: 99212; G0463

== ENCOUNTER 2022-01-11 10:04 | Day surgery (SDC) | payer MEDICARE, MEDICAID, SELFPAY ==
[2022-01-11 10:12] VITALS: BP 142/78; PULSE 79; RESP 18; TEMP 36.3; O2SAT 98; BMI 38.8
[2022-01-11 10:31] VITALS: BP 156/87; PULSE 88; RESP 20
--- NOTE | 2022-01-11 10:33 | HMH.PMPROC ---
- Procedure Date: 01/11/22 Time: 10:33 Anesthesiologist:: Trung Nava CRNA Complications:: None Pre-procedure Diagnosis:: Osteoarthritis right shoulder Post-procedure Diagnosis:: Same Indications for Procedure:: Patient is a pleasant 56-year-old female who comes our injection clinic today for right intra-articular shoulder injection. Patient has been having decreased range of motion and increased pain over the last few months. CT scan of the right shoulder showed osteoarthritis and AC joint also with synovial cyst. Procedure Details:: To the procedure explained to the patient. The patient was placed in the sitting position. The area over the posterior right shoulder was cleansed using chlorhexidine as a cleansing solution. The right shoulder joint was accessed from posterior position using a 22-gauge inch and half needle. After negative aspiration a solution containing 80 mg of Depo-Medrol +3 cc of 0.5% Marcaine and 3 cc of 1% lidocaine was injected. Patient tolerated procedure without difficulty. There were no complications. Plan and Disposition:: Patient was discharged without incident.
[2022-01-11 10:38] VITALS: BP 125/78; PULSE 77; RESP 20; TEMP 35.9; O2SAT 97
== END 2022-01-11 10:39 | disposition home or self-care (01) ==
LOC: SC.PAINP 10:05
PROVIDERS: PCP Internal Medicine; Visit Provider Nurse Anesthetist, Certified Registered
DX: M19.011 Primary osteoarthritis, right shoulder (principal); I25.10 Atherosclerotic heart disease of native coronary artery without angina pectoris; E11.9 Type 2 diabetes mellitus without complications; J45.909 Unspecified asthma, uncomplicated; K21.9 Gastro-esophageal reflux disease without esophagitis; E78.5 Hyperlipidemia, unspecified; I10 Essential (primary) hypertension; E07.9 Disorder of thyroid, unspecified; Z88.8 Allergy status to other drugs, medicaments and biological substances
CPT/HCPCS: 20610; J1040

== ENCOUNTER → 2022-01-15 09:32 | Outpatient (CLI) | payer MEDICARE, SELFPAY ==
[2022-01-15 14:25] LABS: Basophils # 0.1 K/mm3 (0-0.2); Basophils % 1.4 % (0.1-2.0); Eosinophils # 0.4 K/mm3 (0.0-0.4); Eosinophils % 3.6 % (0.1-12.0); Hematocrit 42.9 % (37.0-47.0); Hemoglobin 13.5 g/dL (12.2-16.2); Lymphocytes # 3.6 K/mm3 (0.7-4.5); Lymphocytes % 37.7 % (10-50); Mean Corpuscular HGB Conc 31.6 g/dL (31.8-35.4); Mean Corpuscular Hemoglobin 29.4 pg (27.0-31.2); Mean Corpuscular Volume 93.1 fl (81-99); Mean Platelet Volume 8.3 fl (7.4-10.4); Monocytes # 0.6 K/mm3 (0.1-1.0); Monocytes % 6.7 % (1.7-9.3); Neutrophils # 4.8 K/mm3 (1.8-7.8); Neutrophils % 50.6 % (37.0-80.0); Platelet Count 488 K/mm3 (142-424); Red Blood Count 4.61 M/mm3 (4.20-5.40); Red Cell Distribution Width 16.5 % (11.5-17.5); White Blood Count 9.5 K/mm3 (4.8-10.8)
[2022-01-15 14:26] LABS: Chloride 101 mmol/L (98-107); INR 1.01 (0.9-1.1); Potassium 3.8 mmoL/L (3.5-5.1); Prothrombin Time 11.4 seconds (10.1-12.5); Sodium 140 mmol/L (136-145)
[2022-01-15 14:28] LABS: Blood Urea Nitrogen 16 mg/dl (7-17); Estimated Glomerular Filt Rate 74 ml/min (>60); GFR (African American) 89 ML/MIN (>60)
[2022-01-15 14:29] LABS: Alanine Aminotransferase 67 U/L (12-78); Albumin Level 4.4 g/dl (3.5-5.0); Albumin/Globulin Ratio 1.3 (1.1-1.8); Alkaline Phosphatase 93 U/L (38-126); Anion Gap 14.8 mEq/L (5-15); Aspartate Amino Transferase 84 U/L (14-36); Bilirubin,Total 0.4 mg/dl (0.2-1.3); Calcium 9.6 mg/dl (8.4-10.2); Carbon Dioxide 28 mmol/L (22.0-30.0); Globulin 3.4 g/dL (1.3-3.2); Glucose 162 mg/dl (74-100); Total Protein,Serum 7.8 g/dl (6.3-8.2)
[2022-01-16 08:19] LABS: HIV Screen 4th Generation wRfx Non Reactive (Non Reactive)
[2022-01-17 00:07] LABS: ALT (SGPT) P5P 64 IU/L (0-40); Alpha 2-Macroglobulins, Qn 353 mg/dL (110-276); Apolipoprotein A-1 177 mg/dL (116-209); Bilirubin, Total 0.3 mg/dL (0.0-1.2); Fibrosis Score 0.36 (0.00-0.21); Fibrosis Stage F1-F2 (.); GGT 143 IU/L (0-60); Haptoglobin 226 mg/dL (33-346); Necroinflammat Activity Grade A1-A2 (.)
[2022-01-17 22:10] LABS: HCV Genotype Charge YES; Hepatitis C Genotype 1a (.)
[2022-01-26 18:47] LABS: Hep A Ab, IgM NEGATIVE; Hepatitis B Core Antibody IgM NEGATIVE; Hepatitis B Surface Antigen NEGATIVE; Hepatitis C Antibody >11.0
== END ==
PROVIDERS: Visit Provider Nurse Practitioner
DX: B18.2 Chronic viral hepatitis C (principal); Z11.4 Encounter for screening for human immunodeficiency virus [HIV]
CPT/HCPCS: 36415; 80053; 80074; 81596; 85025; 85610; 86703; 87522; 87902; G0432

== ENCOUNTER → 2022-05-09 11:33 | Outpatient (POV) | payer MEDICARE, SELFPAY ==
[2022-05-09 11:47] VITALS: BP 121/76; PULSE 76; RESP 18; TEMP 36.2; O2SAT 98; BMI 37.5
--- NOTE | 2022-05-09 12:12 | EXP.PAIN.SOA ---
[facility] Pain Management SOAP Note Subjective:: Patient is a pleasant 57-year-old female who presents today for follow-up. We are currently treating the patient for a right shoulder osteoarthritis, degenerative disc disease of lumbar spine with lumbar radiculopathy symptoms, left hip pain. Today the patient rates her pain 8 out of 10. She states the pain is primarily in her neck radiating into her left shoulder. She states this has been going on for about a week and 1/2 to 2 weeks. Patient denies any new trauma or injury. Patient states she may have slept funny however the pain has not gone away. She does have limited range of motion on her left side. Patient also states she continues to have pain in her right shoulder and right knee. Patient has been to physical therapy in the past however this did not improve her symptoms. Patient was seen Dr. Escamilla in [place] regarding her right knee osteoarthritis however she states she has trouble with transportation and has not been able to go to her appointments. Patient has had right shoulder cortisone injections in the past. Patient states she has tried [id number] Tylenol and ibuprofen with no improvement of her symptoms. She is currently managed with gabapentin 800 mg 4 times a day and tramadol 50 mg 3 times a day. Patient denies any side effects from these medications. She states these medications are adequately helping manage her pain. Patient does also have a [employer] spinal cord stimulator in place. Patient states this continues to give improvement of her symptoms however she has had more pain on the right side and has not been reprogrammed lately to try and redirect the therapy to this location. Patient is interested in injective therapy for her neck and shoulder pain as well as a pain pump trial in the future. Her Berto is [id number]. It has been reviewed and appropriate. review of Systems: General: No recent weight changes, no fever, no sleep disturbances Respiratory: No cough, no shortness of air, no recurring pulmonary infections Cardiovascular/peripheral vascular: No chest pain, no palpitations, no edema, no shortness of breath Gastrointestinal: No new onset incontinence, normal bowel movements reported Genitourinary: No new onset incontinence Musculoskeletal: Low back pain, neck pain, bilateral shoulder pain, right knee pain Psychiatric: [Normal mood/affect] Neurological: [Denies weakness in extremities], [denies balance issues] Objective:: Physical Exam: General: Alert and oriented x3, no acute distress, pleasant and cooperative Lungs: Respirations even and unlabored, symmetrical chest expansion Eyes: PERRL Musculoskeletal: Flexion and extension of cervical, lumbar [spine] somewhat guarded secondary to pain, [antalgic gait noted]. Extreme point tenderness along left cervical paraspinous and trapezius Neurological: Speech clear, no gross sensory deficit COMPARISON:? CT [facility] CT CERVICAL SPINE from 08/17/2017 TECHNIQUE:? Axial images obtained with sagittal and coronal reformats. All CT scans at the facility use one or more dose reduction, viz: automated exposure control, ma/kV adjustment per patient size (including targeted exams where dose is matched to indication, i.e. head), or iterative reconstruction technique. Axial spiral CT scanning performed of the cervical spine beginning at the base of the skull and continuing to the upper T-spine. 3-D multiplanar reconstruction with 3-D manipulation of volumetric data set in image rendering was completed by the radiologist and/or technologist with the supervision of the radiologist on independent workstation. FINDINGS: There has been interval anterior cervical disc fusion from C4-C7. There is good alignment. C2-C3: Mild degenerative disc disease with mild right lateral recess narrowing from facet and uncovertebral hypertrophy and mild bilateral lateral recess narrowing. C3-C4: Degenerate disc disease with moderate to s
== END ==
PROVIDERS: PCP Internal Medicine; Visit Provider Nurse Practitioner Family
DX: M51.16 Intervertebral disc disorders with radiculopathy, lumbar region (principal); M50.323 Other cervical disc degeneration at C6-C7 level
CPT/HCPCS: 99212; G0463

== ENCOUNTER → 2022-10-04 11:24 | Outpatient (POV) | payer MEDICARE, SELFPAY ==
[2022-10-04 11:40] VITALS: BP 130/81; PULSE 116; RESP 19; O2SAT 98; BMI 39.6
--- NOTE | 2022-10-04 11:52 | EXP.PAIN.SOA ---
[facility] Pain Management SOAP Note Subjective:: This patient is a very pleasant 57-year-old female comes our clinic today for medication refill visit. We currently manage her with gabapentin 800 mg 1 p.o. 4 times daily. Tramadol 50 mg 1 p.o. 3 times daily. Zanaflex 4 mg 1 p.o. 3 times daily. We been treating this patient for quite some time for chronic cervical neck pain with cervical radiculopathy symptoms as well as lumbar back pain with lumbar radiculopathy symptoms. In today's visit the patient describes to me an episode she had a week. This episode is described as cervical neck pain as well as bilateral shoulder/trapezius radiculopathy. Patient rated the pain 10/10. Patient required a visit from the EMS to her home to simply check her vital signs to make sure she was okay. Patient describes the pain as constant, sharp and stabbing. She had difficulty with cervical range of motion. She is feeling better today at the time of the visit. However, she still complains of bilateral trapezius soreness. Posterior cervical spine soreness. She has some limited range of motion with flexion, extension, left and right rotation. Patient is status post anterior cervical discectomy and fusion in the past. Patient has CT scan on file from August 17, 2017 of the cervical spine. At that time it showed multilevel degenerative disc cervical spine. Multilevel cervical spondylosis cervical spine. I discussed in detail with the patient regarding cervical medial branch block/facet blocks C5-6, C6-7 bilaterally. Patient would like to proceed with this procedure. Patient has tried and failed physical therapy in the past. Home exercise program has not been successful. NSAIDs and/or acetaminophen has not been much help. Essentially, she has failed conservative treatments and medication. Objective:: Patient is awake alert [place] x3. No acute distress. Flexion-extension lumbar spine somewhat guarded. Flexion-extension cervical spine very guarded secondary to pain. Deep tendon reflexes upper lower extremities normal. Motor strength upper and lower extremities normal. There is no gross sensory deficit. Gait is normal. Patient does require cane for stability Assessment:: Degenerative disc disease lumbar spine multilevels. Lumbar radiculopathy. Degenerative disc disease cervical spine multilevels. Cervical radiculopathy. Cervical spondylosis. Cervical facet arthropathy multilevel Plan:: I reviewed the patient's Berto #[id number]. We will send in refills for her tramadol, gabapentin and Zanaflex. We will schedule patient for bilateral cervical facet blocks C5-6, C6-7. I discussed in detail with the patient regarding the injections. I answered her questions. She wishes to proceed. [facility] Disclaimer: The information contained in this section may have been updated after the patient was seen, as this information can be updated by other users. Medical History (Updated 07/19/20 @ 13:23 by Arnold Ball MD) Abnormal cardiovascular stress test Abnormal EKG CAD (coronary artery disease) Dizziness DM (diabetes mellitus) ODOM (dyspnea on exertion) Edema Hyperlipidemia Hypertension Hypertensive heart disease Hypotension Insomnia Morbid obesity Other forms of angina pectoris Restless sleeper Snoring Social History Smoking Status: Never smoker alcohol intake: never substance use type: denies use current occupational status: other Travel in the last 8 weeks: None household members: other housing: house current occupational exposures/hazards: No caffeine: Yes
--- NOTE | 2022-10-04 11:59 | EXP.PAIN.OV ---
HPI Data of Consult Patient: new to practice Consult date: 10/04/22 Requesting Physician: Trung Nava CRNA Primary Care Provider: Moose Chavarria Consult Narrative Reason for consult: Lumbar back pain. Lumbar radiculopathy. History of present illness: Ms. Kinsey is a 57 year old female who comes our clinic today for initial evaluation regarding chronic low back pain that she describes as constant, dull, aching. Upon examination she has extreme point tenderness low lumbar midline. Patient currently taking meloxicam, Cymbalta and gabapentin. Patient had a full work-up with pain doctor in [place]. He recommended bilateral lumbar L4-5, L5-S1 radiofrequency ablation. However, it was discovered his office does not take her current health insurance. She was sent to us for eval and treatment. Patient describes her low back pain as constant, dull, aching. She rates the pain 7/10. Patient does have some radiculopathy into her bilateral hips. Patient has had 3 separate scoliosis spine surgeries. Her initial surgery for scoliosis was 1977. Subsequent surgery 1997 and revision in 1999. I discussed in detail with the patient regarding lumbar facet arthropathy/spondylosis. I explained to her treatment being initially lumbar medial branch block/facet blocks L4-5, L5-S1 bilaterally. We would then move further into treatment with radiofrequency ablation of the same levels. She wishes to proceed. CC: Trung Nava CRNA [facility] Disclaimer: The information contained in this section may have been updated after the patient was seen, as this information can be updated by other users. Medical History (Updated 07/19/20 @ 13:23 by Arnold Ball MD) Abnormal cardiovascular stress test Abnormal EKG CAD (coronary artery disease) Dizziness DM (diabetes mellitus) ODOM (dyspnea on exertion) Edema Hyperlipidemia Hypertension Hypertensive heart disease Hypotension Insomnia Morbid obesity Other forms of angina pectoris Restless sleeper Snoring Social History Smoking Status: Never smoker alcohol intake: never substance use type: denies use current occupational status: other Travel in the last 8 weeks: None household members: other housing: house current occupational exposures/hazards: No caffeine: Yes Review of Systems Review of Systems Review of systems (narrative): Patient is awake alert [place] x3. In no acute distress. Flexion-extension lumbar spine very guarded secondary to pain. Deep tendon reflexes upper lower extremities normal. Motor strength upper and lower extremity normal. There is no gross sensory deficit. Gait is normal. Patient requires a cane for stability. *Musculoskeletal Comments: Lumbar back pain. Bilateral hip and leg radicular symptoms. Meds Home Medications and Allergies Home Medications Medication Instructions Recorded Confirmed Type allopurinol 300 mg tablet 300 mg PO QDAY gout 09/11/17 10/04/22 History (Zyloprim) aspirin 81 mg tablet,delayed 81 mg PO QDAY Blood thinner 09/11/17 10/04/22 History release (Adult Low Dose Aspirin) buspirone 15 mg tablet 30 mg PO BID mood 09/11/17 10/04/22 History cholecalciferol (vitamin D3) 50 2,000 unit PO QDAY Supplement 09/11/17 10/04/22 History mcg (2,000 unit) capsule pravastatin 40 mg tablet 40 mg PO QHS Cholesterol 09/11/17 10/04/22 History (Pravachol) topiramate 50 mg tablet (Topamax) 50 mg PO QHS migraines 09/11/17 10/04/22 History venlafaxine 150 mg 150 mg PO QDAY mood 09/11/17 10/04/22 History capsule,extended release 24 hr (Effexor XR) insulin aspar prt-insulin aspart 20 unit SUB-Q QPM Diabetes 02/06/18 10/04/22 History 100 unit/mL (70-30) subcutaneous soln (Novolog Mix 70-30 U-100 Insuln) furosemide 40 mg tablet (Lasix) 40 mg PO BID Fluid 06/05/18 10/04/22 History hydroxyzine pamoate 25 mg capsule 25 mg PO BID Depression 06/05/18 10/04/22 History (Vistaril) metformin 500 mg tablet 1,5
== END | disposition home or self-care (01) ==
PROVIDERS: PCP Internal Medicine; Visit Provider Nurse Anesthetist, Certified Registered
DX: M50.123 Cervical disc disorder at C6-C7 level with radiculopathy (principal); M51.16 Intervertebral disc disorders with radiculopathy, lumbar region
CPT/HCPCS: 99212; G0463

== ENCOUNTER 2022-10-08 10:46 | Day surgery (SDC) | payer MEDICARE, SELFPAY ==
[2022-10-08 10:59] VITALS: BP 142/100; PULSE 108; RESP 18; TEMP 36.7; O2SAT 97; BMI 36.8
[2022-10-08 11:15] VITALS: BP 149/86; PULSE 77; RESP 19; O2SAT 97
[2022-10-08 11:17] VITALS: BP 149/86; PULSE 77; RESP 19; O2SAT 97
[2022-10-08 11:26] VITALS: BP 139/89; PULSE 103; RESP 18; O2SAT 96
--- NOTE | 2022-10-08 12:03 | P.PCN_ITS ---
Procedure Date: 10/08/22 Time: 11:45 Anesthesiologist:: Trung Nava CRNA Complications:: None Pre-procedure Diagnosis:: Degenerative disc disease cervical spine multilevels. Cervical radiculopathy. Cervical spondylosis. Multilevel cervical facet arthropathy. Cervical postlaminectomy syndrome. Post-procedure Diagnosis:: Same. Indications for Procedure:: This patient is a pleasant 57-year-old female that comes our clinic today for cervical medial branch blocks/facet blocks C5-6, C6-7 levels. Patient has difficulty with flexion, extension, left or right rotation in the cervical spine. She describes cervical neck pain is constant, dull, aching. She rates the pain 8/10. Procedure Details:: Informed consent was obtained and the risk and benefits of the procedure was explained to the patient. Patient was taken to the procedure room where noninvasive monitors were placed, including noninvasive blood pressure cuff as well as pulse oximeter. The area over the posterior cervical spine was cleansed using chlorhexidine as a cleansing solution. I anesthetized the skin and subcutaneous tissues with 1% Lidocaine. I placed 25 -gauge spinal needles into the facet joint/ medial branches of C5-6, C6-7 bilaterally. Needle placement was confirmed with fluoroscopy. After confirmation of needle placement, each site was injected with 1 mL of 1% lidocaine and 0.25 % Marcaine and 10 mg of Depo- Medrol. A total of 20 mg of depo medrol was used for bilateral medial branch blocks of C5-6, C6-7 bilaterally. Patient tolerated the procedure without difficulty. There were no complications. Plan and Disposition:: Patient was discharged without incident.
== END 2022-10-08 11:26 | disposition home or self-care (01) ==
PROVIDERS: PCP Internal Medicine; Visit Provider Nurse Anesthetist, Certified Registered
DX: M50.123 Cervical disc disorder at C6-C7 level with radiculopathy (principal); M96.1 Postlaminectomy syndrome, not elsewhere classified; M47.892 Other spondylosis, cervical region
CPT/HCPCS: 64490; 64491; J1040; Q9966

== ENCOUNTER → 2022-10-18 08:58 | Outpatient (POV) | payer MEDICARE, SELFPAY ==
[2022-10-18 09:14] VITALS: BP 163/86; PULSE 109; RESP 18; O2SAT 98; BMI 39.1
--- NOTE | 2022-10-18 09:46 | EXP.PAIN.SOA ---
[facility] Pain Management SOAP Note Subjective:: This patient is a very pleasant 57-year-old female comes our clinic today for follow-up visit after receiving cervical medial branch blocks/facet block bilaterally C5-6, C6-7. This was done on 10/08/2022. Patient reports 30 to 60 minutes of relief in terms of her cervical neck pain. However, after this time patient has been experiencing moderate to severe pain in the posterior cervical spine as well as bilateral trapezius areas as well as shoulders. Patient rates her pain today 03/10. Patient has decreased strength left hand. Patient complains of left radicular symptoms that are numbness in the fingertips as well as tingling sensation in her hand. Patient is status post ACDF 2018. This was done by Dr. Leal. Patient's CT scan in 2019 revealed severe degenerative disc with disc bulge multilevel cervical spine. I suggest to the patient today we update cervical CT scan imaging. Also, send her for evaluation and opinion with Dr. Leal regarding symptoms. Patient continues to receive 75% improvement terms of overall low back symptoms as well as bilateral hip and leg radicular symptoms with spinal cord stimulator that is intact and functioning. Objective:: Patient is awake alert [place] x3. In no acute distress. Flexion-extension cervical spine guarded secondary to pain. Deep tendon reflexes upper and lower extremities normal. Motor strength upper extremities decreased on the left. Lower extremities normal. There is no gross sensory deficit. Gait is normal. Assessment:: Degenerative disc disease cervical spine multilevels. Cervical radiculopathy. Cervical postlaminectomy syndrome. Degenerative disc disease lumbar spine multilevels. Lumbar radiculopathy Plan:: We will plan for updated imaging CT scan cervical spine. We will send her to Dr. Leal for surgical evaluation/opinion. She will return to see us following this consultation. [facility] Disclaimer: The information contained in this section may have been updated after the patient was seen, as this information can be updated by other users. Medical History (Updated 07/19/20 @ 13:23 by Arnold Ball MD) Abnormal cardiovascular stress test Abnormal EKG CAD (coronary artery disease) Dizziness DM (diabetes mellitus) ODOM (dyspnea on exertion) Edema Hyperlipidemia Hypertension Hypertensive heart disease Hypotension Insomnia Morbid obesity Other forms of angina pectoris Restless sleeper Snoring Social History Smoking Status: Never smoker alcohol intake: never substance use type: denies use current occupational status: other Travel in the last 8 weeks: None household members: other housing: house current occupational exposures/hazards: No caffeine: Yes
== END ==
PROVIDERS: PCP Internal Medicine; Visit Provider Nurse Anesthetist, Certified Registered
DX: M51.16 Intervertebral disc disorders with radiculopathy, lumbar region (principal); M50.123 Cervical disc disorder at C6-C7 level with radiculopathy
CPT/HCPCS: 99212; G0463